=== PATIENT | female | born 1990 | race Caucasian/White ===

== ENCOUNTER 2017-01-21 10:57 | Inpatient (IN) | payer OTHER ==
[~2017-01-21] VITALS: Ht 160 cm; Wt 72.6 kg
--- NOTE | 2017-01-21 11:05 | NUR ---
PT STATES SHE WOKE UP A 2 WEEKS AGO WITH A PAINFUL LOWER BACK. SHE WAS SENT TO [facility] BY WALK IN FOR AN MRI YESTERDAY. PT STATES SHE NEVER GOT THE MRI. PT DENIES ANY TRAUMA THAT WOULD ACCOUNT FOR HER PAIN. STATES THE PAIN NOW GOES INTO HER UPPER BACK
--- NOTE | 2017-01-21 11:57 | ED GENERAL ADULT ---
History of Present Illness General Chief Complaint: General Adult Stated Complaint: BACK PAIN Source: patient Exam Limitations: no limitations Vital Signs & Intake/Output Vital Signs & Intake/Output Vital Signs Date Time Temp Pulse Resp B/P B/P Pulse O2 O2 Flow FiO2 Mean Ox Delivery Rate 01/210 96.3 74 20 128/75 98 Room Air 01/21 1859 96.5 62 20 104/68 99 Room Air 01/21 1341 97.2 60 19 118/72 100 Room Air 01/21 1201 96 01/21 1104 97.7 58 20 129/80 98 Room Air Allergies Coded Allergies: Penicillins (ANAPHALAXIS 01/21/17) Reconcile Medications Clindamycin HCl 150 MG CAPSULE 1 CAP PO 4 TIMES/DAY ANTIBIOTIC, INFECTION ( Reported) Fluoxetine HCl 40 MG CAPSULE 1 CAP PO QAM MENTAL HEALTH (Reported) Gabapentin 400 MG CAPSULE 1 CAP PO 4 TIMES/DAY UNKNOWN (Reported) Hydroxyzine Pamoate 50 MG CAPSULE 2 CAP PO TID UNKNOWN (Reported) Methadone HCl 10 MG/ML ORAL.CONC 40 MG PO DAILY MAINTENCE (Reported) Norethindrone AC-Eth Estradiol (Loestrin 21 1-20 Tablet) 1 MG-20 MCG TABLET 1 TAB PO DAILY BC (Reported) Triage Note: PT STATES SHE WOKE UP A 2 WEEKS AGO WITH A PAINFUL LOWER BACK. SHE WAS SENT TO [facility] BY WALK IN FOR AN MRI YESTERDAY. PT STATES SHE NEVER GOT THE MRI. PT DENIES ANY TRAUMA THAT WOULD ACCOUNT FOR HER PAIN. STATES THE PAIN NOW GOES INTO HER UPPER BACK Triage Nurses Notes Reviewed? yes Onset: Abrupt Duration: week(s): Timing: recent history : No Patient currently breastfeeds: No HPI: 01/21/17 12:51 PM This is a 26-year-old female presents to the emergency department complaining of severe upper and lower back pain. The patient states she was in usual state of health until approximately the past 2 weeks when she developed upper back pain. She says the pain radiates down into her spine. She is having intermittent weakness in the lower extremities. She is also having episodes of blurry vision. The onset of the symptoms were abrupt, the duration has been 2 weeks, the severity is significant; as her symptoms required her to come to the emergency department for care. On physical exam she does not have any objective weakness. She does have lower extremity hyperreflexia. She has a past medical history of depression she takes Prozac, Vistaril, and gabapentin. She denies any possibility of . Past History Travel History Traveled to [place] past 21 day No Medical History Any Pertinent Medical History? see below for history Psychiatric: anxiety, depression Surgical History Surgical History: non-contributory Psychosocial History What is your primary language Macedonian Tobacco Use: Current Daily Use Daily Tobacco Use Amount/Type: => 5 Cigarettes daily ETOH Use: occasional use Illicit Drug Use: denies illicit drug use Family History Hx Contributory? No Review of Systems Review of Systems Constitutional: Denies: fever. EENTM: Reports: visual changes. Respiratory: Denies: short of breath. Cardiovascular: Denies: chest pain. GI: Denies: abdominal pain. Genitourinary: Reports: no symptoms. Musculoskeletal: Reports: back pain, muscle pain. Skin: Denies: rash. Neurological/Psychological: Reports: weakness. Hematologic/Endocrine: Denies: bruising, bleeding. Physical Exam Physical Exam General Appearance: alert, awake, anxious, moderate distress Head: atraumatic, normal appearance Eyes: Bilateral: normal appearance, PERRL, EOMI. Ears, Nose, Throat: normal pharynx, normal ENT inspection Neck: normal inspection, supple, full range of motion Respiratory: normal breath sounds, chest non-tender Cardiovascular: regular rate/rhythm Peripheral Pulses: 4+ radial (R), 4+ radial (L) Gastrointestinal: soft, non-tender Back: decreased range of motion, muscle spasm Extremities: no edema Neurologic/Psych: no motor/sensory deficits, awake, alert, oriented x 3, no objective motor weakness, she does have hyperreflexia Reflexes: 4+: knee (R), knee (L). Skin: intact, normal color, warm/dry Core Measures ACS in differential dx? No CVA/TIA Diagnosis: No Severe Sepsis Present: No Septic Shock Present: No Progress Differential Diagnoses I considered the following diagnoses in my evaluation of the patient: [Guillain- Cota syndrome, epidural abscess, transverse myelitis, rhabdomyolysis, multiple sclerosis, adverse drug reaction,] Plan of Care: Orders Procedure Date/time Status Regular Diet 01/22 B Active CREATINE PHOSPHOKINASE 01/22 600 Active CBC WITHOUT DIFFERENTIAL 01/22 600 Active BASIC ELECTROLYTES PLUS BUN&CR 01/22 600 Active Lab Add-on Test 01/21 2045 Active BLOOD CULTURE 01/21 2045 Active TRC EVALUATION (GEN) 01/22 2044 Active Pathway - chart 01/22 2044 Active House Staff 01/22 2044 Active Lab Add-on Test 01/22 2044 Active Patient Data 01/[address] in observation 01/21 1839 Active Vital Signs 01/21 183 Active Code Status 01/21 1839 Active Add-on Test (ER Only) 01/21 1639 Active Add-on Test (ER Only) 01/21 1549 Active THYROID STIMULATING HORMONE 01/21 1324 Active LYME TITRE 01/21 1324 Active HIV (Reflex to HIVCQ) 01/21 1324 Active HEPATITIS PANEL 01/21 1324 Active FREE T4 01/21 1324 Active WESTERGREN SED RATE 01/21 1324 Active C-REACTIVE PROTEIN 01/21 1324 Active CREATINE PHOSPHOKINASE 01/21 1324 Active COMPREHENSIVE METABOLIC PANEL 01/21 1313 Active CBC WITHOUT DIFFERENTIAL 01/21 1313 Active Add-on Test (ER Only) 01/21 1254 Active Intake & Output 01/21 1201 Active URINE 01/21 1157 Complete URINE DRUG SCREEN FOR ER ONLY 01/21 1157 Complete URINALYSIS 01/21 1157 Complete VTE Mechanical Prophylaxis 01/21 UNK Active Vital Signs 01/21 UNK Active EKG 01/21 UNK Active Current Medications Sig/[place] Start time Last Medication Dose Stop Time Status Admin Fluoxetine HCl 40 MG DAILY 01/22 1000 AC (Prozac) Clindamycin 150 MG 4 TIMES/DAY 01/21 2200 AC (Cleocin 150MG Cap) Gabapentin 400 MG 4 TIMES/DAY 01/21 2200 AC (Neurontin) Heparin Sodium 5,000 UNIT Q8 01/21 2200 AC (Porcine) Hydroxyzine HCl 100 MG TID 01/21 2200 AC (Atarax) Ibuprofen 600 MG Q6P PRN 01/21 2045 AC 01/21 (Motrin) 2113 Nicotine 21 MG Q24 01/21 2045 AC 01/21 (Nicoderm) 2113 Sodium Chloride 1,000 ML Q6H 01/21 2015 AC (Normal Saline 0.9%) Diazepam 0 .STK-MED ONE 01/21 1955 CAN (Valium) Laboratory Tests 01/21/17 1324: Lyme Disease Antibody Pending 01/21/17 1324: Anion Gap 10, Estimated GFR > 60, BUN/Creatinine Ratio 15.0, Glucose 150 H, Calcium 8.7, Total Bilirubin 0.6, AST 116 H, ALT 133 H, Alkaline Phosphatase 56, Creatine Kinase 2515 H, C-Reactive Prot, Quant < 0.5, Total Protein 6.7, Albumin 3.7, Globulin 3.0, Albumin/Globulin Ratio 1.2, TSH 1.050, Free T4 1.11, CBC w Diff NO MAN DIFF REQ, RBC 4.11 L, MCV 89.5, MCH 30.7, RDW 12.6, MPV 6.5 L, Gran % 72.4, Lymphocytes % 20.8, Monocytes % 6.3, Eosinophils % 0.2, Basophils % 0.3, Absolute Granulocytes 10.6 H, Absolute Lymphocytes 3.0, Absolute Monocytes 0.9 H, Absolute Eosinophils 0, Absolute Basophils 0, PUBS MCHC 34.3, ESR Westergren Pending, Hepatitis A IgM Ab Pending, Hep Bs Antigen Pending, Hep B Core IgM Ab Conf Pending, Hepatitis C Antibody Pending, HIV 1&2 Ab Western Blot Pending 01/21/17 1157: Urine Opiates Screen < 100.00, Methadone Screen > 735 H, Barbiturate Screen < 60, Ur Phencyclidine Scrn 10.40, Amphetamines Screen < 100, U Benzodiazepines Scrn 406 H, Urine Cocaine Screen < 50, Urine Cannabis Screen > 80.00 H, Urine Color YEL, Urine Clarity CLEAR, Urine pH 6.5, Ur Specific [place] 1.015, Urine Protein NEG, Urine Ketones NEG, Urine Nitrite NEG, Urine Bilirubin NEG, Urine Urobilinogen 0.2, Ur Leukocyte Esterase NEG, Ur Microscopic SEDIMENT EXAMINED, Urine RBC RARE, Ur Epithelial Cells FEW, Urine Hemoglobin TRACE-INTACT, Urine Glucose NEG, Urine Test NEGATIVE Microbiology 01/22 2108 BLOOD: Blood Culture - RECD 01/21 2106 BLOOD: Blood Culture - RECD Initial ED EKG: none Departure Departure Disposition: STILL A PATIENT Condition: Stable Clinical Impression Primary Impression: Rhabdomyolysis Referrals: UNKNOWN (PCP/Family) Departure Forms: Customer Survey General Discharge Information Comments 01/21/17 MRI showed muscle edema. No epidural abscess or fluid collection. The patient' s CK was elevated substantially. She agreed to stay for IV fluids and further evaluation. MRI result listed below IMPRESSION: No epidural fluid collection. Mild spondylitic changes in the midthoracic spine. Small disc protrusion at T6-T7 abutting the ventral cord. No cord signal abnormality or syrinx. Minimal annular bulges in the cervical spine which is otherwise normal. No lumbar disc pathology. No imaging findings of discitis/osteomyelitis. Abnormal edema paraspinal muscles posteriorly throughout much of the cervical spine and lumbar spine with patchy areas of edema also present in the posterior paraspinal musculature in the upper and lower thoracic spine of indeterminate etiology. Imaging findings can be seen in the setting of rhabdomyolysis and clinical correlation is suggested. Imaging findings discussed with Dr. Fields at 4:40 PM on 01/21/2017. DICTATED BY: MARAL OVIEDO MD DATE/TIME DICTATED:01/21/171626 CARGO MATE:DARVIN DATE/TIME TRANSCRIBED:01/21/171626 CONFIDENTIAL, DO NOT COPY WITHOUT APPROPRIATE AUTHORIZATION. <Electronically signed in Other Vendor System> SIGNED BY: MARAL OVIEDO MD [id number] Observation Note Spoke With: BREE BARRIOS MD Physician Advisor Notified: KRISTIE DUPONT,PRERNA Zarate Place Patient In: Non-ED OBS Care Area Rationale for Observation: My rational for observation is as follows [patient needs IVF, IV PAIN MEDICATION , REPEAT CPK, FOLLOW UP CREATININE, neuro checks every 6 hours]. Critical Care Note Critical Care Note Critical Care Time: non-applicable
--- NOTE | 2017-01-21 12:00 | NUR ---
PT SEDATED MOTHER ANSWERING QUESTIONS FOR HER DR. HAWTHORNE AT BEDSIDE FOR EVAL PT FALLING ASLEEP WHILE TALKING
--- NOTE | 2017-01-21 12:25 | NUR ---
PT SLEEPING ON STRETCHER
--- NOTE | 2017-01-21 13:04 | NUR ---
DR. HAWTHORNE AT BEDSIDE TO DISCUSS POC
--- NOTE | 2017-01-21 13:28 | NUR ---
LABS DRAWN AND SENT BY THIS [facility]. BLUE,SST,LAV.
[2017-01-21 13:34] LABS: ABSOLUTE BASOPHIL COUNT 0 /CUMM (0.0-0.2); ABSOLUTE EOSINOPHIL COUNT 0 /CUMM (0.0-0.7); ABSOLUTE GRANULOCYTE CT 10.6 /CUMM (1.4-6.5); ABSOLUTE MONOCYTE COUNT 0.9 /CUMM (0.10-0.60); BASOPHIL % 0.3 % (0.0-2.0); EOSINOPHIL % 0.2 % (0-5); GRANULOCYTE % 72.4 % (42.2-75.2); HEMATOCRIT 36.8 % (37-47); MEAN CORPUSCULAR HGB 30.7 PG (27.0-31.0); MEAN CORPUSCULAR HGB CONC 34.3 G/DL (33.0-37.0); MEAN CORPUSCULAR VOLUME 89.5 FL (81.0-99.0); MEAN PLATELET VOLUME 6.5 FL (7.4-10.4); PLATELET COUNT 345 /CUMM (130-400); RBC DISTRIBUTION WIDTH 12.6 % (11.5-14.5); RED BLOOD CELL CT 4.11 /CUMM (4.20-5.40); WHITE BLOOD CELL COUNT 14.6 /CUMM (4.8-10.8)
--- NOTE | 2017-01-21 13:42 | NUR ---
PT MEDICATED DIRECTED WAITING FOR MRI
--- NOTE | 2017-01-21 14:49 | NUR ---
PT CONT. TO BE SEDATED ON AND OFF TO SLEEP WAITING FOR MRI
[2017-01-21] MEDS ORDERED: METHADONE10 MG/1 M2 PO (14:50)
[2017-01-21] MEDS ORDERED: GABAPENTIN400 M2 PO (14:51)
[2017-01-21] MEDS ORDERED: CLINDAMYCIN HC150 M1 PO (14:51)
[2017-01-21] MEDS ORDERED: FLUOXETINE HCL40 M1 PO (14:52)
[2017-01-21] MEDS ORDERED: HYDROXYZINE PAM50 M1 PO (14:52)
[2017-01-21] MEDS ORDERED: LOESTRIN 21 1-1 EACH PO (14:52)
--- NOTE | 2017-01-21 16:49 | MRI REPORT ---
EXAMINATION: MR CERVICAL SPINE WITHOUT CONTRAST MR THORACIC SPINE WITHOUT CONTRAST MR LUMBAR SPINE WITHOUT CONTRAST CLINICAL INFORMATION: Weakness. Rule out epidural abscess. COMPARISON: None TECHNIQUE: Multiplanar, multisequence imaging was obtained. FINDINGS: Cervical spine: The marrow signal is homogeneous. No endplate erosive changes are evident. There is no marrow edema. The discs are fairly well-hydrated. There are mild posterior annular bulges at C3-C4, C5-C6, and C6-C7. No disc protrusions are seen. There is no central canal stenosis or foraminal narrowing. No epidural soft tissue abnormality is visible. Cord signal is normal. There is no syrinx. The imaged portions of the brain parenchyma demonstrate no acute abnormality. There is edema throughout the posterior paraspinal muscles from the C2 level extending into the upper thoracic levels. No soft tissue fluid collection is seen. The vertebral artery flow voids are maintained. Thoracic spine: The marrow signal is homogeneous. The discs are fairly well-hydrated. There is mild to moderate disc space narrowing with endplate Schmorl's node formation at T7-T8 level and a very mild annular bulge. At the T3-T4 level, there is a minimal disc bulge posteriorly. At the T6-T7 level, there is a very small central disc protrusion which abuts the ventral cord. There is no central canal stenosis or foraminal narrowing. No epidural fluid collection is seen. No syrinx is identified. Edema is visible in the posterior paraspinal soft tissues extending to the T3 level. Lumbar spine: The discs are well-hydrated. There are no compression fractures or subluxations. Mild fatty marrow endplate change is noted inferiorly at the L2 level. The central canal and neural foramina are widely patent. The distal cord, conus tip, and cauda equina nerve roots are normal. No epidural fluid collection is seen. There are no disc protrusions. There are edematous change is present in the posterior paraspinal muscles bilaterally spanning from the lower thoracic to the lumbar levels and to the sacrum inferiorly. No discrete fluid collection is seen. IMPRESSION: No epidural fluid collection. Mild spondylitic changes in the midthoracic spine. Small disc protrusion at T6-T7 abutting the ventral cord. No cord signal abnormality or syrinx. Minimal annular bulges in the cervical spine which is otherwise normal. No lumbar disc pathology. No imaging findings of discitis/osteomyelitis. Abnormal edema paraspinal muscles posteriorly throughout much of the cervical spine and lumbar spine with patchy areas of edema also present in the posterior paraspinal musculature in the upper and lower thoracic spine of indeterminate etiology. Imaging findings can be seen in the setting of rhabdomyolysis and clinical correlation is suggested. Imaging findings discussed with Dr. Fields at 4:40 PM on 01/21/2017.
--- NOTE | 2017-01-21 17:01 | NUR ---
PT BACK FROM MRI VIA WHEELCHAIR
--- NOTE | 2017-01-21 19:24 | NUR ---
20G IV ESTABLISHED IN RAC.
--- NOTE | 2017-01-21 20:01 | NUR ---
HOUSESTAFF AT BEDSIDE FOR EVAL.
--- NOTE | 2017-01-21 20:17 | NUR ---
PT GOING TO ROOM 220-1.
--- NOTE | 2017-01-21 20:20 | History & Physical ---
MARISOL DUPONT,MARBIN 01/21/17 2019: General Information and HPI History of Present Illness: Ms. Su is a 26-year-old lady with a PMH significant for opiate dependence on methadone, depression and anxiety who presents with back pain for 10 days. Patient woke up with a sharp upper back pain and soreness about a week and half ago. Denies any recent/previous trauma, exercise, heavy lifting, or tick bites. Since then the pain has been progressively worsening and migrated down to the lower back and right posterior thigh. Pain is worsened by movement and not improved by any meds. Patient c/o difficulty ambulating and unsteady gait due to the pain. Patient went to urgent clinic 2 days ago and was scheduled for MRI at [facility] to where she presented yesterday but got discharged without any imaging studies as the pain was attributed to back spasm. ROS remarkable for nasal congestion and blurry vision for 2 days. Mild chills but no fevers. She endores neck pain with extension but there's no stiffness. Denies chest pain, palpitations, dypsnea, abdominal pain, n/v/c/d, dizziness, lightheadedness. Only new medications that were recently started include clindamycin for tooth infection since 5 days ago, gabapentin about a month ago, and methadone about a week ago. On she lives at her uncle's home. 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 Current smoker, up to 1 PPD. Denies any EtOH or illicit drug use. FH unremarkable. In ED patient was found to have leukocytosis at 14 and elevated CPK at 2515. A series of MRI studies were done and concerning for abnormal edema paraspinal muscles. However it did show . Patient received 1 liter bols of NS and 2 doses of Valium 5mg IV with an improvement in the back pain. PCP - none Full code. Allergies/Medications Allergies: Coded Allergies: Penicillins (ANAPHALAXIS 01/21/17) Home Med list Clindamycin HCl 150 MG CAPSULE 1 CAP PO 4 TIMES/DAY ANTIBIOTIC, INFECTION ( Reported) Fluoxetine HCl 40 MG CAPSULE 1 CAP PO QAM MENTAL HEALTH (Reported) Gabapentin 400 MG CAPSULE 1 CAP PO 4 TIMES/DAY UNKNOWN (Reported) Hydroxyzine Pamoate 50 MG CAPSULE 2 CAP PO TID UNKNOWN (Reported) Methadone HCl 10 MG/ML ORAL.CONC 40 MG PO DAILY MAINTENCE (Reported) Norethindrone AC-Eth Estradiol (Loestrin 21 1-20 Tablet) 1 MG-20 MCG TABLET 1 TAB PO DAILY BC (Reported) Past History Travel History Traveled to [place] past 21 day No Medical History Psychiatric: anxiety, depression Surgical History Surgical History: appendectomy Past Family/Social History Family History Relations & Conditions if any Family history was reviewed; no changes noted. Psychosocial History Where do you live? Home Who Do You Live With? Uncle Smoking Status: Current Everyday Smoker ETOH Use: denies use Illicit Drug Use: denies illicit drug use Review of Systems Review of Systems Constitutional: Reports: see HPI. Exam & Diagnostic Data Last 24 Hrs of Vital Signs/I&O Vital Signs Date Time Temp Pulse Resp B/P B/P Pulse O2 O2 Flow FiO2 Mean Ox Delivery Rate 01/21 2200 98.1 66 14 130/92 95 Room Air 01/21 2120 96.3 74 20 128/75 98 Room Air 01/21 1859 96.5 62 20 104/68 99 Room Air 01/21 1341 97.2 60 19 118/72 100 Room Air 01/21 1201 96 01/21 1104 97.7 58 20 129/80 98 Room Air Intake & Output 01/21 1600 01/21 0800 01/21 0000 Intake Total 0 Output Total Balance 0 Intake, Oral 0 Patient 61.235 kg Weight Physical Exam General Appearance Alert, Oriented X3, Cooperative, No Acute Distress Skin Diffuse pimples in the face Skin Temp/Moisture Exam: Cool/Dry HEENT Atraumatic, PERRLA, EOMI, Mucous Membr. moist/pink Neck Supple, No JVD, No LAD Cardiovascular Regular Rate, Normal S1, Normal S2, No Murmurs, Gallops, Rubs Lungs Clear to Auscultation, Normal Air Movement Abdomen Normal Bowel Sounds, Soft, No Tenderness Neurological Normal Gait, Normal Speech, Strength at 5/5 X4 Ext, Normal Tone, Sensation Intact, Cranial Nerves 3-12 NL, Hyperreflexia in BLE, TTP in paraspinal muscles of the whole spine (R>L) Extremities No Clubbing, No Cyanosis, No Edema, Normal Pulses, No Tenderness/ Swelling, Straight leg test negative Vascular Normal Pulses, Pulses Symmetrical Last 24 Hrs of Labs/Kg: Laboratory Tests 01/21/17 1324: Lyme Disease Antibody Pending 01/21/17 1324: Anion Gap 10, Estimated GFR > 60, BUN/Creatinine Ratio 15.0, Glucose 150 H, Calcium 8.7, Total Bilirubin 0.6, AST 116 H, ALT 133 H, Alkaline Phosphatase 56, Creatine Kinase 2515 H, Troponin I < 0.01, C-Reactive Prot, Quant < 0.5, Total Protein 6.7, Albumin 3.7, Globulin 3.0, Albumin/Globulin Ratio 1.2, TSH 1.050, Free T4 1.11, CBC w Diff NO MAN DIFF REQ, RBC 4.11 L, MCV 89.5, MCH 30.7 , RDW 12.6, MPV 6.5 L, Gran % 72.4, Lymphocytes % 20.8, Monocytes % 6.3, Eosinophils % 0.2, Basophils % 0.3, Absolute Granulocytes 10.6 H, Absolute Lymphocytes 3.0, Absolute Monocytes 0.9 H, Absolute Eosinophils 0, Absolute Basophils 0, PUBS MCHC 34.3, ESR Westergren 14, Hepatitis A IgM Ab Pending, Hep Bs Antigen Pending, Hep B Core IgM Ab Conf Pending, Hepatitis C Antibody Pending , HIV 1&2 Ab Western Blot NONREACTIVE 01/21/17 1157: Urine Opiates Screen < 100.00, Methadone Screen > 735 H, Barbiturate Screen < 60, Ur Phencyclidine Scrn 10.40, Amphetamines Screen < 100, U Benzodiazepines Scrn 406 H, Urine Cocaine Screen < 50, Urine Cannabis Screen > 80.00 H, Urine Color YEL, Urine Clarity CLEAR, Urine pH 6.5, Ur Specific [place] 1.015, Urine Protein NEG, Urine Ketones NEG, Urine Nitrite NEG, Urine Bilirubin NEG, Urine Urobilinogen 0.2, Ur Leukocyte Esterase NEG, Ur Microscopic SEDIMENT EXAMINED, Urine RBC RARE, Ur Epithelial Cells FEW, Urine Hemoglobin TRACE-INTACT, Urine Glucose NEG, Urine Test NEGATIVE Microbiology 01/22 2108 BLOOD: Blood Culture - RECD 01/21 2106 BLOOD: Blood Culture - RECD Assessment/Plan Assessment: Ms. Su is a 26-year-old lady with a PMH significant for opiate dependence on methadone, depression and anxiety who presents with back pain concerning for rhabdomyolisis. # Back pain most likely 2/2 rhabdomyolysis Her clinical presentation with muscle pain of sudden onset is most consistent with rhabdomyolysis in the setting of CPK > 20k. Etiology not defintely clear but supsected to be most likely medication induced (gabapentin, heroin, street drugs, etc.) * Admit to GM service * Vitals per protocol * Check HIV, hepatitis panel, and lyme titer * Follow ESR and repeat ESR * Resume home meds gabapentin with a plan to taper gradually * Consider neuro/rheum consult * Send pancultures * Recheck CBC in the morning, trend WBC # Opiate/tobacco dependence * Cont home dose of methanoe * Confirm the methadone dose tomorrow morning (reportedly takes 40mg daily) * Nicotine patch # Depression/anxiety * Resume home med Atarax 100mg TID PO * Resume home med Prozac 40mg PO daily # Recent tooth infection * Resume home med Clindamycin 150mg QID - Regular diet - Mild pain pathway, avoid narcotics - DVTppx with SQH - Full code. As Ranked By This Provider Problem List: 1. Rhabdomyolysis 2. Depression 3. Anxiety Core Measures/Miscellaneous Acute Coronary Syndrome ACS Diagnosis: No Cerebrovascular Accident CVA/TIA Diagnosis: No Congestive Heart Failure CHF Diagnosis: No Venous Thromboembolism VTE Risk Factors: Oral contraception, Smoking No [facility] V[facility] prophylaxis d/t: No contraindications No VTE Pharm Prophylaxis d/t: No contraindications VTE Diagnosis: No VTE Type: NONE VTE Confirmed by (Test): NONE Severe Sepsis Severe Sepsis Present: No Septic Shock Septic Shock Present: No Miscellaneous Documentation Attending Case Discussed With: BREE BARRIOS MD Primary Care Physician: UNKNOWN Patient sees these Specialists Psych Level of Patient Care: General Medicine ANIKA BRUSH MD 01/21/172038: Resident Review Statement Resident Statement: examined this patient, discussed with phd internship Other Findings: 26-year-old lady whose medical issues include anxiety and depression presents with a two-week history of lower upper paraspinal pain. Reports no injury or trauma or heavy lifting. States that about a week and a half ago she started to notice the symptoms of progressive upper and lower back pain that radiates to her right posterior thigh. No bladder or bowel incontinence, no vision changes, head aches, head strikes a loss of consciousness. States that she went to the walk-in clinic couple of days ago and they recommended that she go to the emergency room and get an MRI however she has been reluctant to do so over the course of last couple of weeks. Denies any fevers or chills. Denies any cough or dysuria, hematuria. MRI of the cervical, thoracic, lumbar spine showed no acute finding. There is some suggestion of abnormal edema in the paraspinal muscles throughout much of the cervical and lumbar spine. She states that when she was 18 years old she had extensive dental surgery done and was placed on Percocet since, this is why she is presently on methadone and gets it from a healthcare facility in [place]. Family history is negative for heart disease, cancers and diabetes. Patient herself smokes one pack per day, denies any illicit drug use or heavy alcohol use. Denies any tick bite. Pertinent labs- WBC 14,600, BEP is benign, AST 116, ALT 133, alkaline phosphatase 56, CK 2515. U tox positive for methadone, benzodiazepines, cannabis Physical exam- Vital signs are stable, cardiovascular, abdominal exam is benign Tenderness to palpation over paraspinal muscles bilaterally throughout the cervical, thoracic, lumbar spine. No tenderness on the spinal muscles. Hips have good range of motion, spine has good range of motion; mild bilateral hyperreflexia bilateral lower extremities, poor dentition Assessment- 1. Rhabdomyolysis; no definitive etiology. Although gabapentin can cause rhabdomyolysis, other etiologies can include polymyositis, PMR etc. 2. Back pain, no acute trauma or fractures, MRI suggestive of paraspinal muscle inflammation 3. Current pack per day smoker 4. Anxiety and depression 5. Poor dentition 6. Current smoker, 1 pack per day Plan- - General med admission - Vitals per protocol - Hepatitis, HIV, Lyme titer - Check ESR, CRP - Continue home meds, consider tapering gabapentin - Check EKG - Normal saline 150 mL/h - Consider Rheum consult in the morning - Nicotine 21 g patch daily, cessation consult - Regular diet - Pain pathway, avoid opiates - Get blood cultures 2 - Subcutaneous heparin for DVT prophylaxis - Full code Please confirm her methadone dose in the morning BREE BARRIOS 01/22/17 0134: Attending MD Review Statement Attending Statement Attending MD Statement: examined this patient, discuss w/resident/PA/COMMISSIONING SPECIALIST, agreed w/resident/PA/COMMISSIONING SPECIALIST, discussed with family, reviewed EMR data (avail), reviewed images, amended to note Attending Assessment/Plan: CC: back pain PMH: opiate abuse s/p rehab, now on on methadone Patient came to ER complaining of severe upper and lower back pain, started 2 weeks back. The pain is constant, started suddenly, radiates down into her spine , associated with intermittent weakness in the lower extremities. She is also having episodes of blurry vision, headache according to her mother. Patient denies any trauma, loss of consciousness, falls. Patient was seen in urgent care , was suggested urgent ER visit and probable requirement of MRI. Patient went to [facility] where she was treated symptomatically and given Valium and discharged 2 days back. Vitals: T max 97.7, heart rate in 50s, pulse 20s, blood pressure 129/80, saturating well on room air On exam: Drowsy but arousable, no steady gaze , no nystagmus, pupils dilated equal reactive, O 3, cooperative, no acute distress, neck supple, JVD normal, no lymphadenopathy, mucosa moist, no focal neurological deficit except +3 reflexes all extremities, no dependent edema, multiple skin lesions, on lateral aspect of face and arms. Local tenderness on back. CVS: S1-S2, RRR, no murmur. RS: Clear to auscultate bilaterally. Abdomen: Soft, NT, ND, bowel sounds present. Labs: WBC 14.6, neutrophils 72%, glucose 150, creatinine 0.6, BUN 9, AST 116, ALT 133, CK 2515, UDS positive for methadone, benzodiazepines, cannabis MRI thoracic, lumbar, cervical spine: 1. No epidural fluid collection. Mild spondylitic changes in the midthoracic spine. Small disc protrusion at T6-T7 abutting the ventral cord. No cord signal abnormality or syrinx. Minimal annular bulges in the cervical spine which is otherwise normal. No lumbar disc pathology. No imaging findings of discitis/ osteomyelitis. 2. Abnormal edema paraspinal muscles posteriorly throughout much of the cervical spine and lumbar spine with patchy areas of edema also present in the posterior paraspinal musculature in the upper and lower thoracic spine of indeterminate etiology. Imaging findings can be seen in the setting of rhabdomyolysis and clinical correlation is suggested. A and P Patient appears lethargic, unable to maintain gaze, pupils dilated reactive. Multiple skin lesions, noninfected. front tender, MRI suspicious for rhabdomyolysis, so CPK was obtained in ER which was elevated, creatinine is normal. Patient denies any current illicit drug use, trauma, loss of consciousness. Unclear cause of Hemolysis. Probably medication related or patient may have passed out for a long time secondary to any drug use which is not optimal on UDS causing rhabdo. # Rhabdomyolysis unclear etiology # Transaminitis # History of opiate dependence currently on methadone # Leukocytosis: Probably reactive - Place in observation on Gen. medicine - Continue normal saline at 150-200 mL per hour - Strict I's and O's - Check BMP, LFT, CPK in a.m. - Neurochecks every 6 hours - If patient's confusion, lethargy does not improve over time, may require further neuro investigations in a.m. - Check viral hepatitis panel - Check Tylenol level - Blood cultures time 2 -Continue home doses of methadone after confirmation, home doses of fluoxetine, decreased dose of gabapentin and continue clindamycin for dental infection
--- NOTE | 2017-01-21 20:49 | NUR ---
REPORT GIVEN TO ACE JONES ON GEN MED. BED IS READY.
--- NOTE | 2017-01-21 21:15 | NUR ---
PT MEDICATED WITH MOTRIN 600MG PO AND NICOTINE PATCH 21MG TO L ARM PER EMAR.
--- NOTE | 2017-01-21 21:45 | NUR ---
ARRIVED TO FLOOR VIA WHEELCHAIR. VERY LETHARGIC BUT AROUSABLE. ORIENTED X 3. ON RA. VSS. C/O SEVERE LOWER BACK PAIN 07/09. RESIDENT DR. TRUDI CORNEJO AND STATES HE WILL COME UP TO SEE PT. ASSISTED FROM CHAIR TO BED, STANDS WITHOUT DIFFICULTY. MOTHER JOHANNA AT BEDSIDE. IVF HUNG. ORIENTED TO CALL SYSTEM. WILL MONITOR.
[2017-01-21 22:00] VITALS: BP 130/92
[2017-01-22 06:00] VITALS: BP 118/70
[2017-01-22 08:09] LABS: ABSOLUTE BASOPHIL COUNT 0 /CUMM (0.0-0.2); ABSOLUTE EOSINOPHIL COUNT 0.3 /CUMM (0.0-0.7); ABSOLUTE LYMPH COUNT 4.9 /CUMM (1.2-3.4); BASOPHIL % 0.3 % (0.0-2.0); EOSINOPHIL % 2.2 % (0-5); GRANULOCYTE % 52.9 % (42.2-75.2); HEMATOCRIT 34.3 % (37-47); MEAN CORPUSCULAR HGB 30.6 PG (27.0-31.0); MEAN CORPUSCULAR HGB CONC 33.7 G/DL (33.0-37.0); MEAN CORPUSCULAR VOLUME 90.9 FL (81.0-99.0); MEAN PLATELET VOLUME 6.6 FL (7.4-10.4); PLATELET COUNT 299 /CUMM (130-400); RBC DISTRIBUTION WIDTH 12.9 % (11.5-14.5); RED BLOOD CELL CT 3.77 /CUMM (4.20-5.40)
--- NOTE | 2017-01-22 08:50 | NUR ---
PT LEFT FLOOR VIA STRETCHER TO CT SCAN.
[2017-01-22 09:13] LABS: WHITE BLOOD CELL COUNT 13.2 /CUMM (4.8-10.8)
--- NOTE | 2017-01-22 09:30 | CT SCAN REPORT ---
EXAMINATION: CT HEAD WITHOUT AND WITH CONTRAST CLINICAL INFORMATION: Headache, neck pain and mild photophobia. Evaluate for intracranial mass or intracranial hypertension. COMPARISON: None TECHNIQUE: Contiguous axial imaging was performed from the skull base to vertex before and after the administration of 95 mL of Optiray 320 intravenous contrast. DLP: 1201 mGy-cm FINDINGS: The brain parenchyma has normal attenuation with well-preserved rasheed-white matter differentiation. No evidence of cerebral edema, infarction, hemorrhage or extra-axial fluid collection. No evidence of intra-axial or extra-axial mass, focal mass effect or midline shift. The ventricles, sulci and basilar cisterns are unremarkable; no hydrocephalus. No evidence of dural venous sinus thrombosis. There are no saccular aneurysms identified along the [place] of [place]. The calvarium is intact and the visualized paranasal sinuses, nasal cavity, nasopharynx, mastoid air cells and middle ear cavities are well aerated. The orbits, globes and temporomandibular joints are unremarkable. IMPRESSION: No acute intracranial pathology.
--- NOTE | 2017-01-22 10:35 | NUR ---
patient arrived to unit 01/21/2017 at 2200, patient is an observation not an admission at this time, will follow accordingly.
--- NOTE | 2017-01-22 13:34 | PN- Housestaff ---
NENACLAUSHAY 01/22/17 1334: Subjective Follow-up For: rhabdomyolysis history of polysubstance abuse Subjective: Seen and examined patient, mother at bedside. Complains of neck pain. Denies shortness of breath, chest pain, palpitations. Review of Systems Constitutional: Denies: chills, diaphoresis, fever, malaise, weakness, unexplained weight loss. Cardiovascular: Denies: chest pain, edema, orthopena, palpitations, peripheral edema, syncope. Respiratory: Denies: cough, hemoptysis, orthopnea, short of breath, sputum production, stridor, wheezing. Objective Last 24 Hrs of Vital Signs/I&O Vital Signs Date Time Temp Pulse Resp B/P B/P Pulse O2 O2 Flow FiO2 Mean Ox Delivery Rate 01/23 1812 98.8 66 20 116/60 97 Room Air 01/22 1422 99.5 68 20 118/78 94 Room Air 01/22 0928 Room Air 01/22 0600 98.4 58 16 118/70 96 Room Air 01/22 0000 95 Room Air 01/21 2200 98.1 66 14 130/92 95 Room Air 01/21 2120 96.3 74 20 128/75 98 Room Air Intake & Output 01/22 1600 01/22 0800 01/22 0000 Intake Total 960 1540 390 Output Total 700 900 0 Balance 260 640 390 Intake, IV 600 1200 150 Intake, Oral 360 340 240 Number 0 0 Bowel Movements Output, Urine 700 900 0 Patient 160 lb Weight Weight Reported by Patient Measurement Method Physical Exam General Appearance: No Acute Distress, drowsy Skin: excoriations on face Cardiovascular: Regular Rate, Normal S1, Normal S2 Lungs: Clear to Auscultation, Normal Air Movement Abdomen: Normal Bowel Sounds, Soft, No Tenderness Current Medications: Current Medications Sig/[place] Start time Last Medication Dose Route Stop Time Status Admin Acetaminophen 650 MG Q4-6 PRN PRN 01/22 1645 AC 01/22 PO 1646 Clindamycin 150 MG 4 TIMES/DAY 01/21 220 AC 01/22 PO 1920 Cyclobenzaprine HCl 10 MG BID 01/22 1113 DC 01/22 PO 1126 Diazepam 5 MG BID PRN 01/22 1200 AC 01/22 PO 1254 Diazepam 0 .STK-MED ONE 01/21 1955 CAN .ROUTE Diclofenac Sodium 1 ELLIOTT 4 TIMES/DAY PRN 01/22 1815 01/22 TOP 1920 Fluoxetine HCl 40 MG DAILY 01/22 1000 AC 01/22 PO 0931 Gabapentin 300 MG AT BEDTIME 01/22 2200 PO Gabapentin 300 MG TID 01/22 1600 DC 01/22 PO 1622 Gabapentin 400 MG 4 TIMES/DAY 01/21 2200 DC 01/22 PO 0931 Heparin Sodium 5,000 UNIT Q8 01/21 2200 01/22 (Porcine) SC 1435 Hydroxyzine HCl 100 MG TID 01/21 2200 01/22 PO 0931 Ibuprofen 0 .STK-MED ONE 01/21 2057 DC PO Ibuprofen 600 MG Q6P PRN 01/21 2045 DC 01/21 PO 2114 Methadone HCl 40 MG DAILY 01/22 1000 01/22 PO 0932 Nicotine 0 .STK-MED ONE 01/21 2057 DC TOP Nicotine 21 MG Q24 01/21 2045 01/22 TOP 0940 Patient Medication 1 ED .STK-MED ONE 01/22 1403 DC Teaching ED 01/22 1404 Sodium Chloride 1,000 ML Q13H 01/22 0830 01/22 IV 0854 Sodium Chloride 1,000 ML Q6H 01/21 2015 [place] 01/22 IV 0500 Sodium Chloride 1,000 ML BOLUS ONE 01/21 194 DC 01/21 IV 01/21 Tramadol HCl 50 MG ONCE ONE 01/22 0600 DC 01/22 PO 01/22 0601 0600 Tramadol HCl 50 MG ONCE ONE 01/22 0200 DC 01/22 PO 01/22 0201 0206 Tramadol HCl 50 MG ONCE ONE 01/21 2215 [place] 01/21 PO 01/21 Last 24 Hrs of Lab/Kg Results Last 24 Hrs of Labs/Mics: Laboratory Tests 01/22/17 0725: Anion Gap 8, Estimated GFR > 60, BUN/Creatinine Ratio 11.7, Total Bilirubin 0.6, Direct Bilirubin 0.2, AST 63 H, ALT 99 H, Alkaline Phosphatase 44, Creatine Kinase 957 H, Total Protein 5.7 L, Albumin 3.0 L, CBC w Diff NO MAN DIFF REQ, RBC 3.77 L, MCV 90.9, MCH 30.6, RDW 12.9, MPV 6.6 L, Gran % 52.9, Lymphocytes % 37.4, Monocytes % 7.2, Eosinophils % 2.2, Basophils % 0.3, Absolute Granulocytes 7.0 H, Absolute Lymphocytes 4.9 H, Absolute Monocytes 1.0 H, Absolute Eosinophils 0.3, Absolute Basophils 0, PUBS MCHC 33.7 01/21/17 2240: Troponin I < 0.01 Microbiology 01/22 2108 BLOOD: Blood Culture - RES 01/21 2106 BLOOD: Blood Culture - RES Assessment/Plan Assessment: 26-year-old lady with a PMH significant for opiate dependence on methadone, depression and anxiety current admission with back pain of 10 days duration. On admission was found to have leukocytosis at 14 and elevated CPK at 2515. A series of MRI studies were done and concerning for abnormal edema paraspinal muscles. Day 1 of admission: Continues to be lethargic, vitals stable, transaminase and cpk trending down. Contrast enhanced CT head was unremarkable. Problem list: Rhabdomyolysis ( ? drug induced) Transaminitis History of opiate dependence currently on methadone Plan: - Place in extended observation on Gen. medicine - will dc fluids -Her lethargy might be due to her high dose of gabapentin, will start tapering down today -Psyhiatry consulted, appreciate recommendations -will get social work on board -Continue home doses of methadone, fluoxetine, and - continue clindamycin for dental infection for aa total of 7days regular diet DVT ppx full code Problem List: 1. Rhabdomyolysis 2. Depression 3. Anxiety 4. Polysubstance (excluding opioids) dependence Pain Ratin Pain Location: neck Pain Goal: Pain 4 or less Pain Plan: current regimen Tomorrow's Labs & Rationales: none required GUERLINE AVENDANO MD 01/22/17 1336: Attending MD Review Statement Attending Statement Attending MD Statement: examined this patient, discuss w/resident/PA/CURATOR OF EDUCATION, agreed w/resident/PA/CURATOR OF EDUCATION, discussed with family, reviewed EMR data (avail), discussed with nursing, discussed with case mgmt, reviewed images Attending Assessment/Plan: I spoke to the patient and the patient's mother for a very long time at the bedside. I also reviewed all imaging including the entire MRI of the spine and the CT head with and without contrast. This is a 26-year-old female with a history of illicit drug abuse was most recently at [facility] where she was having rehabilitation for prescription opiate use and has been now to more than one hospital for what she describes is acute back pain. She has a lot of polypharmacy with multiple sedating medications in addition to methadone and her U tox positive for benzos. I explained to the patient and her mother that given the negative imaging, the very mild rhabdomyolysis as evidenced by a CPK of 2000 that already 700, that I think most of her symptomatology has to do with polypharmacy and overmedication. The patient is drowsy but arousable and when aroused she makes complete sense, is able to give you an entire history and I think her neurological exam is only limited secondary to sedation. At this point our plan is to start tapering off the medications. The mother seems to think that gabapentin is the biggest offender as it was the most recently added and is at the highest dose and we are going to start tapering that off. We will give her the Valium when necessary as it's clear that she is using benzos with a positive U tox. will wean off the iV fluids and encourage by mouth intake. I have her permission to call psychiatry to help us out with the polypharmacy and the plan will be to try and discharge her later today or within 24 hours. I Did explain to the patient and the mother that most of her issues need chronic care either in an outpatient dual diagnosis unit and with a primary provider.
[2017-01-22 14:22] VITALS: BP 118/78
--- NOTE | 2017-01-22 14:30 | NUR ---
PT APPEARED VERY DROWSY AFTER ADMINISTRATION OF 5 MG PO VALIUM, DISCUSSED FINDING WITH SARAH STAPLES AND MD KATZ. CONCERN ABOUT GABAPENTIN OVERDOSE, THIS RN MENTIONED POSSIBLE OUTSIDE DRUG USE, MD KATZ AND SARAH STAPLES DID NOT SEE THAT NECESSARY. PER SARAH STAPLES THIS RN HELD PO GABAPENTIN AND MONITOR PATIENT VITALS Q 4 HOURS. WILL CONTINUE TO MONITOR
--- NOTE | 2017-01-22 16:00 | NUR ---
PT C/O PAIN IN NECK AND BACK, BECAUSE OF PATIENTS DROWSINESS- ANYTHING TO WORSEN PATIENT'S ALERTNESS SHOULD BE HELD. PO TYLENOL ADMINISTERED FOR PAIN 8/10 IN NECK AND BACK. ALSO HELD PTS ATARAX PER MD AVENDANO. WILL CONTINUE TO MONITOR.
--- NOTE | 2017-01-22 17:00 | Cons- Psychiatry ---
Psychiatric Consult Date of Consult: 01/22/17 Reason for Consult: "substance abuse" History of Present Illness: Identifying Info: 26-year-old single female presents to [facility] emergency department on 01/21/2017 for back pain. Transferred to medical floor for observation subsequently diagnosed with rhabdomyolysis with unknown etiology. CC: "Sorry I'm tired" HPI: Patient has a history of polysubstance abuse, primarily opiates, dating back to age 18 when she received Percocets for dental work. She overused and eventually began using opiates obtained on the street. Throughout that period she has had issues with depression and anxiety. She has a history of substance treatment and one significant period of sobriety from 07/2015 to 07/2016. She recently left residential treatment at [facility] where she was treated by Dr. Nguyen who started her on gabapentin 400 mg 4 times a day. After leaving she engaged in methadone maintenance treatment starting approximately 1 week ago at the [facility] in [place]. At present she has approximately 25 days of sobriety. PMH: Please see the H&P for a complete listing Past Psych History: -Outpatient "Doreen" at [facility] in [place], ?date? -Inpatient Denies Family Psych History: Mom anxiety and depression Dad anxiety Substance History Opiate use d/o Current everyday smoker -Treatment 2015 Residential tx at [facility] followed by stay at [facility] 2017 Inaptient tx at [facility] Substance History: Mom & Dad polysubstance in recovery Social: Currently lives with uncle in [place]. Works at [employer] Abuse/Trauma: Unobtained Current Home Psychotropic Medications: Gabpentin 400mg QID Prozac 40mg Daily Hydroxyzine 100 mg BID Baclofen 20mg daily for opiate cravings Methadone 40mg daily Current Hospital Psychotropic Medications: Med Diazepam 5 MG PO BID PRN 01/22/17 1200 Fluoxetine HCl 40 MG PO DAILY 01/22/17 1000 Gabapentin 300 MG PO AT BEDTIME 01/22/17 2200 Hydroxyzine HCl 100 MG PO TID 01/21/17 2200 Methadone HCl 40 MG PO DAILY 01/22/17 1000 Nicotine 21 MG TOP Q24 01/21/172044 Allergies: Coded Allergies: Penicillins (ANAPHALAXIS 01/21/17) Current Medications: Current Medications Sig/Vernon Start time Last Medication Dose Route Stop Time Status Admin Acetaminophen 650 MG Q4-6 PRN PRN 01/22 1645 AC 01/22 PO 1646 Clindamycin 150 MG 4 TIMES/DAY 01/21 220 AC 01/22 PO 1435 Cyclobenzaprine HCl 10 MG BID 01/22 1113 DC 01/22 PO 1126 Diazepam 5 MG BID PRN 01/22 1200 AC 01/22 PO 1254 Diazepam 0 .STK-MED ONE 01/21 1955 CAN .ROUTE Diazepam 5 MG ONCE ONE 01/21 1945 DC IV 01/21 194 Fluoxetine HCl 40 MG DAILY 01/22 1000 AC 01/22 PO 0931 Gabapentin 300 MG AT BEDTIME 01/22 2200 AC PO Gabapentin 300 MG TID 01/22 1600 DC 01/22 PO 1622 Gabapentin 400 MG 4 TIMES/DAY 01/21 2200 DC 01/22 PO 0931 Heparin Sodium 5,000 UNIT Q8 01/21 2200 AC 01/22 (Porcine) SC 1435 Hydroxyzine HCl 100 MG TID 01/21 2200 01/22 PO 0931 Ibuprofen 0 .STK-MED ONE 01/21 2057 DC PO Ibuprofen 600 MG Q6P PRN 01/21 2045 DC 01/21 PO 2114 Methadone HCl 40 MG DAILY 01/22 1000 AC 01/22 PO 0932 Nicotine 0 .STK-MED ONE 01/21 2057 DC TOP Nicotine 21 MG Q24 01/21 2045 01/22 TOP 0940 Patient Medication 1 ED .STK-MED ONE 01/22 1403 DC Teaching ED 01/22 1404 Sodium Chloride 1,000 ML Q13H 01/22 0830 01/22 IV 0854 Sodium Chloride 1,000 ML Q6H 01/21 2015 NC 01/22 IV 0500 Sodium Chloride 1,000 ML BOLUS ONE 01/21 1945 DC 01/21 IV 01/21 Tramadol HCl 50 MG ONCE ONE 01/22 0600 DC 01/22 PO 01/22 0601 0600 Tramadol HCl 50 MG ONCE ONE 01/22 0200 DC 01/22 PO 01/22 201 020 Tramadol HCl 50 MG ONCE ONE 01/21 2215 DC 01/21 PO 01/21 Past History Past Medical History Neurological: NONE EENT: NONE Cardiovascular: NONE Respiratory: asthma Gastrointestinal: NONE Hepatic: NONE Renal: NONE Musculoskeletal: NONE Psychiatric: anxiety, depression Endocrine: NONE Blood Disorders: NONE Cancer(s): NONE ICT BUSINESS DEVELOPMENT MANAGER/Reproductive: NONE Past Surgical History Surgical History: appendectomy Psychosocial History Strengths/Capabilities: Supportive family, tx motivated Physical Limitations (Interventions): hx of opiate dependence and relapse Psychiatric Treatment History Psych Treatment Psychiatric Treatment Yes ((as above)) Diagnosis: Opiate use disorder Unspecified anxiety disorder Unspecified depressive disorder Risk Factors: high anxiety/distress, substance abuse Substance Use/Abuse History Drug Use/Abuse Substances Used/Abused Yes ((as above)) Substance Abuse Treatment Substance Abuse Treatment Past Substance Abuse [place] Yes ((as above)) Assessment/Plan Mental Status Mental Status Exam: Mental Status Exam Presentation/Appearance: Cooperative with evaluation and takes much effort for her to response appropriately to quetsions. Hospital garb. Appears sedated. Skin breaks to face,(picking vs acne?) Orientation: Oriented to self and month, unable to name date, facility or town. Sensorium: Somnolent Eye contact: Poor Affect: Blunted Mood: "I'm frustrated" Depression: Denies at present Anxiety: Denies at present Thought Content: - Denies SI/HI, AH/VH, PI. States and also believes they will not kill themselves. - Denies Hopeless/Helpless Thoughts Thought Process: Some mild confusion, slowed Speech: Somewhat dysarthic/slurred Judgment: Fair Insight: Fair Cognition: Memory: Short-term deficits Attention/Concentration: Imapired MMSE: Did not assess Brief ROS Gait: Unsteady Sleep: Increased Appetite: Adequate Energy: Low IADLs/ADLs: With assistence currently Per nursing and house staff report patient was much more alert and oriented this a.m. and now appears much more lethargic with some confusion. She has received 40 mg of methadone as well as 5 mg of diazepam today. Collateral obtained from patient's mother who reports she has been experiencing confusion and low energy since beginning to take gabapentin. Confirms patient's recounting of her substances history as above. Patient reports diplopia and blurred vision, sedation, and increased salivation. She requests dual dx IOP referral here or at another facility post discharge. Lab Results: Laboratory Tests 01/22/17 0725: Anion Gap 8, Estimated GFR > 60, BUN/Creatinine Ratio 11.7, Total Bilirubin 0.6, Direct Bilirubin 0.2, AST 63 H, ALT 99 H, Alkaline Phosphatase 44, Creatine Kinase 957 H, Total Protein 5.7 L, Albumin 3.0 L, CBC w Diff NO MAN DIFF REQ, RBC 3.77 L, MCV 90.9, MCH 30.6, RDW 12.9, MPV 6.6 L, Gran % 52.9, Lymphocytes % 37.4, Monocytes % 7.2, Eosinophils % 2.2, Basophils % 0.3, Absolute Granulocytes 7.0 H, Absolute Lymphocytes 4.9 H, Absolute Monocytes 1.0 H, Absolute Eosinophils 0.3, Absolute Basophils 0, PUBS MCHC 33.7 01/21/17 2240: Troponin I < 0.01 01/21/17 1324: Lyme Disease Antibody 0.17 01/21/17 1324: Anion Gap 10, Estimated GFR > 60, BUN/Creatinine Ratio 15.0, Glucose 150 H, Calcium 8.7, Total Bilirubin 0.6, AST 116 H, ALT 133 H, Alkaline Phosphatase 56, Creatine Kinase 2515 H, Troponin I < 0.01, C-Reactive Prot, Quant < 0.5, Total Protein 6.7, Albumin 3.7, Globulin 3.0, Albumin/Globulin Ratio 1.2, TSH 1.050, Free T4 1.11, CBC w Diff NO MAN DIFF REQ, RBC 4.11 L, MCV 89.5, MCH 30.7 , RDW 12.6, MPV 6.5 L, Gran % 72.4, Lymphocytes % 20.8, Monocytes % 6.3, Eosinophils % 0.2, Basophils % 0.3, Absolute Granulocytes 10.6 H, Absolute Lymphocytes 3.0, Absolute Monocytes 0.9 H, Absolute Eosinophils 0, Absolute Basophils 0, PUBS MCHC 34.3, ESR Westergren 14, Hepatitis A IgM Ab NONREACTIVE, Hep Bs Antigen Pending, Hep B Core IgM Ab Conf NONREACTIVE, Hepatitis C Antibody NONREACTIVE, HIV 1&2 Ab Western Blot NONREACTIVE, Acetaminophen < 10.0 L 01/21/17 1157: Urine Opiates Screen < 100.00, Methadone Screen > 735 H, Barbiturate Screen < 60, Ur Phencyclidine Scrn 10.40, Amphetamines Screen < 100, U Benzodiazepines Scrn 406 H, Urine Cocaine Screen < 50, Urine Cannabis Screen > 80.00 H, Urine Color YEL, Urine Clarity CLEAR, Urine pH 6.5, Ur Specific Hallock 1.015, Urine Protein NEG, Urine Ketones NEG, Urine Nitrite NEG, Urine Bilirubin NEG, Urine Urobilinogen 0.2, Ur Leukocyte Esterase NEG, Ur Microscopic SEDIMENT EXAMINED, Urine RBC RARE, Ur Epithelial Cells FEW, Urine Hemoglobin TRACE-INTACT, Urine Glucose NEG, Urine Test NEGATIVE Microbiology 01/22 2108 BLOOD: Blood Culture - RES 01/21 2106 BLOOD: Blood Culture - RES Diffential Diagnosis: Gabapentin intoxication Opiate use disorder, severe in early remission Cannabis use disorder Unspecified anxiety disorder Unspecified depressive disorder Rule out delirium Impression: 26-year-old single female presents with rhabdomyolysis and symptoms of gabapentin intoxication. At this point potential other causes of altered mental status and neurological function cannot be ruled out and etiology of present state is likely multifactorial. She reports almost one month of sobriety from opiates with MMT and would benefit from follow-up supportive care for opiate use disorder once discharged. Provisional Treatment Plan: 1. Continue to monitor neurological status and vital signs closely. 2. Hold gabapentin, diazepam, and hydroxyzine until mentation improves. 3. You may consider holding methadone if s/s of overdose or pt continues to be sedated in AM. Carefully consider risks and benefits as she may begin to experience sx of opiate withdrawl which may cloud and already somewhat unclear clinical picture. 4. Consider neurology referral if current sx do not resolve. 5. Continue Prozac. 6. Appreciate social work referral for disposition planning. 7. This pt may require sitter if confusion increases and family is no longer at bedside. Continue to reassess need. Thank you for including psychiatry in the case, we will continue to follow.
--- NOTE | 2017-01-22 17:30 | NUR ---
PT CONTINUES TO C/O PAIN, MD MAYORGA NOTIFIED, ORDERED TOPICAL VOLTAREN AND SAID SHE WOULD BE UP TO SEE THE PATIENT, PATIENT INFORMED, WILL CONTINUE TO MONITOR.
[2017-01-22 18:12] VITALS: BP 116/60
--- NOTE | 2017-01-22 19:00 | NUR ---
PT C/O ANXIETY AND PAIN, DUE TO CIRCUMSTANCES THIS RN STILL WAITING FOR DOCTOR TO EVALUATE PATIENT BEFORE ADMINISTERING ANY MEDICATION PO, APPLIED TOPICAL VOLTAREN TO PATIENTS NECK AND BACK, PAGED MD, ONCOMING RN AWARE AND WILL FOLLOW UP WITH COVERING FILM OR TAPE LIBRARIAN. WILL CONTINUE TO MONITOR.
[2017-01-23 06:41] VITALS: BP 110/54
--- NOTE | 2017-01-23 09:39 | PN- Psychiatry ---
Assessment/Plan Impression: Identifying Info: 26-year-old single female presents to [facility] emergency department on 01/21/2017 for back pain. Transferred to medical floor for observation subsequently diagnosed with rhabdomyolysis with unknown etiology. SUBJECTIVE "Ok right now." Pt reports improvement in lethargy and confusion. Expresses wish for f/u care at an IOP program. Agreeable to increase in Prozac for anxiety symptoms. Would like to restart atarax. Pt's mother, Kely, who is at bedside discloses that the pts sister has had a similar poor reactionb to gabapentin in the past. Of note she suggests the pt be started on ativan for anxiety, educated on issues this may present due to hx of PSA and wish for day program tx. OBJECTIVE Mental Status Exam Presentation/Appearance: Cooperative with evaluation. Hospital garb. Sitting in bed. Orientation: Oriented to self, place, situation and month but not date. Sensorium: Awake and alert Eye contact: Appropriate Affect: Somewhat blunted but more expressive than yesterday Mood: Euthymic Depression: Denies Anxiety: 02/06 Thought Content: - Denies SI/HI, AH/VH, PI. States and also believes they will not kill themselves. - Denies Hopeless/Helpless Thoughts Thought Process: Linear Speech: Normal tone and rate Judgment: Fair Insight: Fair Cognition: Memory: Grossly intact Attention/Concentration: Grossly intact Brief ROS Gait: Unsteady (not observed) Sleep: 4 hours last night Appetite: Adequate ASSESSMENT 26-year-old single female presents with rhabdomyolysis and symptoms of gabapentin intoxication presents today as greatly improved. Appears treatment motivated at this time. Would benefit from increase in Prozac and potential restart of atarax for anxiety. Differential diagnosis Gabapentin intoxication, resolved Opiate use disorder, severe, in early remission Cannabis use disorder Unspecified anxiety disorder Unspecified depressive disorder Rule out delirium Suggestion: 1. Please increase Prozac to 60mg daily. 2. Please restart atarax 100mg TID PRN anxiety if mentation remains WNL. 3. Appreciate social work referral for disposition planning. Thank you for including psychiatry in this case, we will continue to follow. Subjective Subjective: (as above) Objective Last 24 Hrs of Vital Signs/I&O Current Medications Sig/Vernon Start time Last Medication Dose Route Stop Time Status Admin Acetaminophen 650 MG .STK-MED ONE 01/23 110 DC PO 04/26 0111 Acetaminophen 650 MG Q4-6 PRN PRN 01/22 1645 AC 01/23 PO 0538 Clindamycin 150 MG 4 TIMES/DAY 01/21 2200 AC 01/23 PO 0909 Cyclobenzaprine HCl 10 MG BID 01/22 1113 DC 01/22 PO 1126 Diazepam 5 MG BID PRN 01/22 1200 DC 01/22 PO 1254 Diclofenac Sodium 1 ELLIOTT 4 TIMES/DAY PRN 01/22 1815 AC 01/23 TOP 0538 Fluoxetine HCl 40 MG DAILY 01/22 1000 AC 01/23 PO 0909 Gabapentin 300 MG AT BEDTIME 01/22 2200 CAN PO Gabapentin 300 MG TID 01/22 1600 DC 01/22 PO 1622 Gabapentin 400 MG 4 TIMES/DAY 01/21 2200 DC 01/22 PO 0931 Heparin Sodium 5,000 UNIT Q8 01/21 2200 AC 01/23 (Porcine) SC 0538 Hydroxyzine HCl 100 MG TID 01/21 2200 DC 01/22 PO 0931 Ibuprofen 600 MG TID PRN 01/23 0830 AC PO Lidocaine 1 PAT DAILY 01/23 1000 AC EXT Methadone HCl 40 MG DAILY 01/22 1000 AC 01/23 PO 0909 Nicotine 21 MG Q24 01/21 2045 AC 01/23 TOP 0908 Patient Medication 1 ED .STK-MED ONE 01/22 1403 DC Teaching ED 01/22 1404 Sodium Chloride 1,000 ML Q13H 01/22 0830 DC 01/22 IV 0854 Tramadol HCl 50 MG ONCE ONE 01/22 2145 DC 01/22 PO 01/22 2146 2202 Vital Signs Date Time Temp Pulse Resp B/P B/P Pulse O2 O2 Flow FiO2 Mean Ox Delivery Rate 01/23 0641 98.1 57 20 110/54 96 Room Air 01/22 181 98.8 66 20 116/60 97 Room Air 01/22 1422 99.5 68 20 118/78 94 Room Air Intake & Output 01/23 1600 01/23 0800 01/23 0000 Intake Total 200 400 Output Total Balance 200 400 Intake, Oral 200 400
--- NOTE | 2017-01-23 10:42 | NUR ---
PT C/O PAIN 05/09. LIDODERM PATCH AND IBUPROFEN AVAILABLE AND REQUESTED BY PATIENT. MD DAY AWARE. WILL CONTINTUE TO MONITOR.
--- NOTE | 2017-01-23 11:12 | PN- Housestaff ---
SHAY MCCABE 01/23/17 1111: Subjective Follow-up For: rhabdomyolysis history of polysubstance abuse Subjective: Seen and examined patient, mother at bedside. continues to complain of of neck pain and today feels like she is unable to walk. She also continues to experience diplopia intermittently. Reports urinary incontinence overnight when sleeping. Denies shortness of breath, chest pain, palpitations, dysuria, abdominal pain. Review of Systems Constitutional: Denies: chills, diaphoresis, fever, malaise, weakness, unexplained weight loss. Cardiovascular: Denies: chest pain, edema, orthopena, palpitations, peripheral edema, syncope. Respiratory: Denies: cough, hemoptysis, orthopnea, short of breath, sputum production, stridor, wheezing. Gastrointestinal: Denies: abdominal pain, bloating, constipation, diarrhea, distention, bowel incontinence, melena, nausea, bloody stool, changes in stool, vomiting, steatorrhea. Objective Last 24 Hrs of Vital Signs/I&O Vital Signs Date Time Temp Pulse Resp B/P B/P Pulse O2 O2 Flow FiO2 Mean Ox Delivery Rate 01/23 1643 98.7 84 20 126/70 95 Room Air 01/23 1500 98.3 84 20 120/60 96 01/23 0641 98.1 57 20 110/54 96 Room Air 01/22 1812 98.8 66 20 116/60 97 Room Air Intake & Output 01/23 1600 01/23 0800 01/23 0000 Intake Total 680 200 400 Output Total 700 Balance -20 200 400 Intake, IV 0 Intake, Oral 680 200 400 Number 0 Bowel Movements Output, Urine 700 Physical Exam General Appearance: Alert, Oriented X3, Cooperative, No Acute Distress Skin: scars on face Cardiovascular: Regular Rate, Normal S1, Normal S2 Lungs: Clear to Auscultation, Normal Air Movement Abdomen: Normal Bowel Sounds, Soft, No Tenderness Neurological: Normal Speech, Normal Tone, Sensation Intact (over s3/s4), Cranial Nerves 3-12 NL, strength 3/5 x4, hypereflexia b/l , plantar reflexes Extremities: No Edema Current Medications: Current Medications Sig/Vernon Start time Last Medication Dose Route Stop Time Status Admin Acetaminophen 650 MG .STK-MED ONE 01/23 0537 DC PO 01/23 0538 Acetaminophen 650 MG .STK-MED ONE 01/23 0110 DC PO 01/23 0111 Acetaminophen 650 MG Q4-6 PRN PRN 01/22 1645 AC 01/23 PO 0538 Clindamycin 150 MG 4 TIMES/DAY 01/21 2200 AC 01/23 PO 1711 Diazepam 5 MG BID PRN 01/22 1200 DC 01/22 PO 1254 Diclofenac Sodium 1 ELLIOTT 4 TIMES/DAY PRN 01/22 1815 AC 01/23 TOP 0538 Fluoxetine HCl 60 MG DAILY 01/24 1000 AC PO Fluoxetine HCl 40 MG DAILY 01/22 1000 DC 01/23 PO 0909 Gabapentin 300 MG AT BEDTIME 01/22 2200 CAN PO Heparin Sodium 5,000 UNIT Q8 01/21 2200 AC 01/23 (Porcine) SC 1411 Hydroxyzine HCl 75 MG TID 01/23 1600 AC 01/23 PO 1700 Hydroxyzine HCl 50 MG TID 01/23 1000 DC PO Hydroxyzine HCl 100 MG TID 01/21 2200 DC 01/22 PO 0931 Ibuprofen 600 MG TID PRN 01/23 0830 AC 01/23 PO 1039 Lidocaine 1 PAT DAILY 01/23 1000 AC 01/23 EXT 1711 Methadone HCl 40 MG DAILY 01/22 1000 AC 01/23 PO 0909 Nicotine 21 MG Q24 01/21 2045 AC 01/23 TOP 1711 Sodium Chloride 1,000 ML Q13H 01/22 0830 DC 01/22 IV 0854 Tramadol HCl 50 MG Q6 01/23 1200 AC 01/23 PO 1711 Tramadol HCl 50 MG ONCE ONE 01/22 2145 DC 01/22 PO 01/22 2146 2202 Last 24 Hrs of Lab/Kg Results Last 24 Hrs of Labs/Mics: Laboratory Tests 01/23/17 0920: Urinalysis LIGHT H, Urine Color YEL, Urine Clarity CLEAR, Urine pH 7.0, Ur Specific Dyer 1.010, Urine Protein NEG, Urine Ketones NEG, Urine Nitrite NEG, Urine Bilirubin NEG, Urine Urobilinogen 0.2, Ur Leukocyte Esterase SMALL H, Ur Microscopic SEDIMENT EXAMINED, Urine RBC RARE, Urine WBC 5-10 H, Ur Epithelial Cells FEW, Urine Bacteria FEW H, Urine Mucus RARE, Urine Hemoglobin NEG, Urine Glucose NEG Microbiology 01/23 0920 URINE ROUT: Urine Culture - RECD Assessment/Plan Assessment: 26-year-old lady with a PMH significant for opiate dependence on methadone, depression and anxiety current admission with back pain of 10 days duration. On admission was found to have leukocytosis at 14 and elevated CPK at 2515. A series of MRI studies were done was concerning for abnormal edema paraspinal muscles. Day of admission: lethargic has improved, afebrile, vitals stable, reports worsening weakness and inablility to walk even with assistance. Problem list: Rhabdomyolysis ( ? drug induced) Transaminitis History of opiate dependence currently on methadone Plan: -I personally walked the patient with nursing staff, although she was able to stand, she had tremors of her upper and lower extremities which were not noticeable when she was lying down. She was unable to walk despite a walker and and assist of two. This is a new change and was noticed yesterday. unclear at this time the reason for her weakness, will obtain MRI head to r/o Multiple sclerosis, possible underlying systemic infection given her recent tooth infection however she remains afebrile,however of note she did have an elevated white count on admission her symptoms could also be secondary to non organic cause but this will be a diagnosis of exclusion. Will also obtain neuro consult as she will need further work up she will be made full admitt to inpatient. Psyhiatry consulted, appreciate recommendations will get social work on board gabapentin discontineu -Continue methadone, fluoxetine dose increased to 60 mg , atarax decreased to 75 mg, diazepam 5 mg BID - continue clindamycin for her dental infection regular diet DVT ppx sc heparin full code Problem List: 1. Rhabdomyolysis 2. Depression 3. Anxiety 4. Polysubstance (excluding opioids) dependence Pain Ratin Pain Location: neck Pain Goal: Pain 4 or less Pain Plan: will add lidocaine patch daily, and tramadol 50 mg PRN q6 Tomorrow's Labs & Rationales: none required GUERLINE AVENDANO MD 01/23/17 1148: Attending MD Review Statement Attending Statement Attending MD Statement: examined this patient, discuss w/resident/PA/STEM SETTER, agreed w/resident/PA/STEM SETTER, discussed with family, reviewed EMR data (avail), discussed with nursing, discussed with case mgmt, reviewed images Attending Assessment/Plan: Entire team including the resident, advertising intern myself and the psychiatry BASEBALL CLUB MANAGER spoke to the patient and the patient's mother at length. She is much more awake today and I believe the sedation from the polypharmacy is less of an issue today granted that we stopped the gabapentin, stopped the hydroxyzine and the Valium and continued the methadone and Prozac. Now she's complaining that we are under medicating her and that she was given all of this for severe anxiety and pain. I tried to explain the very fine balance between polypharmacy and oversedation versus dealing with her symptoms. We reached a compromise of keeping the Atarax at 75mg 3 times a day, using low-dose tramadol rarely as needed for pain, using Lidoderm patch and Voltaren gel for pain and increasing the Prozac to 60 mg a day. She was complaining of some urinary incontinence however I don't think it' s real incontinence. I think that she was so sedated that she could not make it to the bathroom on time. Her initial UA was completely negative, MRI of the entire spine was negative and the repeat UA today has 5-10 white cells which is still essentially negative. At this point the plan is that she'll eat lunch and likely be discharged today. She is going to stay in her uncle's house, I have spoken to both the psychiatry BASEBALL CLUB MANAGER and the nephrology social worker, she is going to follow with the [facility] and they're going to set her up for IOP.
[2017-01-23] MEDS ORDERED: HYDROXYZINE HCL25 M2 PO (11:20)
[2017-01-23] MEDS ORDERED: LIDODERM1 EACH EXT (11:20)
--- NOTE | 2017-01-23 11:34 | Patient Discharge Instructions ---
Discharge Instructions General Discharge Information You were seen/treated for: Lethargic weakness You had these procedures: MRI cervical/thoracic/lumbar spine MRI head Repeat MRI cervical/thoracic/lumbar spine Special Instructions: please follow up with your PCP within one week of discharge please follow up at your Methadone clinic tommorrow Please ensure you talk to your Methadone clinic about setting up IOP for you Please follow up with your LOCKSTITCH WAISTLINE JOINER Isa Tino Diet Recommended Diet: Regular Acute Coronary Syndrome Inclusion Criteria At DC or during hospital stay patient has or had the following: ACS DIAGNOSIS No Discharge Core Measures Meds if any: Prescribed or Continued at Discharge Meds if any: NOT Prescribed or Continued at Discharge Congestive Heart Failure Inclusion Criteria At DC or during hospital stay patient has or had the following: CHF DIAGNOSIS No Discharge Core Measures Meds if any: Prescribed or Continued at Discharge Meds if any: NOT Prescribed or Continued at Discharge Cerebrovascular accident Inclusion Criteria At DC or during hospital stay patient has or had the following: CVA/TIA Diagnosis No Discharge Core Measures Meds if any: Prescribed or Continued at Discharge Meds if any: NOT Prescribed or Continued at Discharge Venous thromboembolism Inclusion Criteria VTE Diagnosis No VTE Type NONE VTE Confirmed by (Test) NONE Discharge Core Measures - Per Current guidelines, there needs to be overlap - treatment for the first 5 days of Warfarin therapy. - If discharged on Warfarin prior to 5 days of - overlap therapy, the patient will need to be - assessed for post discharge needs including - *Post discharge parental anticoagulation - *Warfarin and/or parental anticoagulation education - *Follow up date to check INR post discharge At least 5 days overlap therapy as Inpatient No Meds if any: Prescribed or Continued at Discharge Note: Overlap Therapy is Warfarin and Anticoagulant Meds if any: NOT Prescribed or Continued at Discharge
[2017-01-23] MEDS ORDERED: TRAMADOL HCL50 M1 PO (11:43)
[2017-01-23] MEDS ORDERED: VOLTAREN100 GM TOP (11:43)
[2017-01-23] MEDS ORDERED: FLUOXETINE HCL20 M2 PO (11:43)
[2017-01-23 15:00] VITALS: BP 120/60
--- NOTE | 2017-01-23 15:18 | NUR ---
PT LEFT FLOOR VIA WHEELCHAIR TO MRI. WHILE DOWN IN MRI LIDODERM AND NICOTINE PATCH REMOVED
--- NOTE | 2017-01-23 16:05 | NUR ---
PHYSICAL THERAPY. PT CONSULT RECEIVED AND CHART REVIEWED. Pt CURRENTLY FIDEL AT MRI OF THE HEAD TO R/O MS. PT WILL F/U APPROPRIATE.
--- NOTE | 2017-01-23 16:15 | NUR ---
PT BACK TO FLOOR VIA WHEELCHAIR FROM MRI, REPLACED NICOTINE PATCH AND LIDODERM PATCH, MD WERNER AWARE.
[2017-01-23 16:43] VITALS: BP 126/70
--- NOTE | 2017-01-23 17:17 | MRI REPORT ---
EXAMINATION: MR BRAIN WITHOUT CONTRAST CLINICAL INFORMATION: Diplopia. Weakness. Difficulty walking. Assess for multiple sclerosis. COMPARISON: None TECHNIQUE: MRI of the brain without contrast was obtained using routine sequences. FINDINGS: Several of the series are motion degraded. Repeats were attempted. No acute abnormality. Given substantial motion on the majority of the series, the signal within the brain parenchyma appears grossly normal. Callosal volume is maintained. No focal reduced diffusion is seen to suggest acute or subacute cerebral ischemia. No intracranial mass, intracerebral edema, intra-axial blood products, midline shift, or extra-axial collection is visualized. The ventricles and sulcal spaces appear normal. Normal arterial and venous vascular flow voids are present. The paranasal sinuses, nasal cavity, nasopharynx, and mastoid air cells are clear. The orbits are unremarkable. The craniocervical junction and supersellar region appear unremarkable. Marrow signal is preserved. No evidence of upper cervical adenopathy. IMPRESSION: Motion degraded examination. No acute intercranial abnormality. No convincing signal abnormality within the brain.
--- NOTE | 2017-01-23 17:34 | Cons- Neurology ---
General Information and HPI Consulting Request Date of Consult: 01/23/17 Requested By: JUAN ALBERTO DUPONT,GUERLINE Wade Reason for Consult: Severe whole back pain, neck pain and leg weakness. Source of Information: patient, family, old records Exam Limitations: no limitations History of Present Illness: This is a 26 year old right handed woman who presented to the after developing severe back pain. She is not known for back pain and has never suffered from it. At baseline she has had severe anxiety and depression that were poorly managed. She ended up resorting to recreational drugs to soothe her anxiety. More recently she has been placed on methadone in attempt to quell her dependence. She was in her usual state of health until ten days ago when she had a root canal for dental infection. She was then placed on antibiotics for it. She was placed on Clindamycin. Of note is that she was also placed on a large dose of gabapentin for her anxiety recently (has been stopped since arrival). About 3 days ago she started suffering from back pain that has progressed down to her legs. Today, her legs are evidently weak proximally. She was also found to have significant rhabdomyolysis and edema in the paraspinal muscles. She denies any fever, chills, rashes or joint pain. Per the nurse she has a large aphthous ulcer in her mouth. She also noted stacked vertical double vision that has since resolved. Finally, she notes nocturia, wetting the bed three times already, but being able to control her bladder when awake. Allergies/Medications Allergies: Coded Allergies: Penicillins (ANAPHALAXIS 01/21/17) Home Med List: Clindamycin HCl 150 MG CAPSULE 1 CAP PO 4 TIMES/DAY ANTIBIOTIC, INFECTION ( Reported) Diclofenac Sodium (Voltaren) 1 % GEL..GRAM. 1 ELLIOTT TOP 4 TIMES/DAY PRN PAIN SCALE 1-3 (MILD) Fluoxetine HCl 40 MG CAPSULE 1 CAP PO QAM MENTAL HEALTH (Reported) Fluoxetine HCl 20 MG CAPSULE 60 MG PO DAILY PRN ANXIETY Gabapentin 400 MG CAPSULE 1 CAP PO 4 TIMES/DAY UNKNOWN (Reported) Hydroxyzine HCl 25 MG TABLET 75 MG PO TID anxiety Hydroxyzine Pamoate 50 MG CAPSULE 2 CAP PO TID UNKNOWN (Reported) Lidocaine (Lidoderm) 5 % ADH..PATCH 1 PAT EXT DAILY PRN Pain Methadone HCl 10 MG/ML ORAL.CONC 40 MG PO DAILY MAINTENCE (Reported) Norethindrone AC-Eth Estradiol (Loestrin 21 1-20 Tablet) 1 MG-20 MCG TABLET 1 TAB PO DAILY BC (Reported) Tramadol HCl 50 MG TABLET 50 MG PO Q6 PRN PAIN Current Medications: Current Medications Sig/[place] Start time Last Medication Dose Route Stop Time Status Admin Acetaminophen 650 MG .STK-MED ONE 01/23 0537 DC PO 01/23 0538 Acetaminophen 650 MG .STK-MED ONE 01/23 0110 DC PO 01/23 0111 Acetaminophen 650 MG Q4-6 PRN PRN 01/22 1645 AC 01/23 PO 0538 Clindamycin 150 MG 4 TIMES/DAY 01/21 2200 AC 01/23 PO 1711 Diazepam 5 MG BID PRN 01/22 1200 DC 01/22 PO 1254 Diclofenac Sodium 1 ELLIOTT 4 TIMES/DAY PRN 01/22 1815 AC 01/23 TOP 0538 Fluoxetine HCl 60 MG DAILY 01/24 1000 AC PO Fluoxetine HCl 40 MG DAILY 01/22 1000 DC 01/23 PO 0909 Gabapentin 300 MG AT BEDTIME 01/22 2200 CAN PO Heparin Sodium 5,000 UNIT Q8 01/21 2200 AC 01/23 (Porcine) SC 1411 Hydroxyzine HCl 75 MG TID 01/23 1600 AC 01/23 PO 1700 Hydroxyzine HCl 50 MG TID 01/23 1000 DC PO Hydroxyzine HCl 100 MG TID 01/21 2200 DC 01/22 PO 0931 Ibuprofen 600 MG TID PRN 01/23 0830 AC 01/23 PO 1039 Lidocaine 1 PAT DAILY 01/23 1000 AC 01/23 EXT 1711 Methadone HCl 40 MG DAILY 01/22 1000 AC 01/23 PO 0909 Nicotine 21 MG Q24 01/21 2045 AC 01/23 TOP 1711 Sodium Chloride 1,000 ML Q13H 01/22 0830 DC 01/22 IV 0854 Tramadol HCl 50 MG Q6 01/23 1200 AC 01/23 PO 1711 Tramadol HCl 50 MG ONCE ONE 01/22 214 DC 01/22 PO 01/22 Review of Systems Review of Systems: As per HPI otherwise negative. Past History Travel History Traveled to [place] past 21 day No Medical History Blood Transfusion Hx: No Neurological: NONE EENT: NONE Cardiovascular: NONE Respiratory: asthma Gastrointestinal: NONE Hepatic: NONE Renal: NONE Musculoskeletal: NONE Psychiatric: anxiety, depression Endocrine: NONE Blood Disorders: NONE Cancer(s): NONE ELECTRICAL SYSTEMS DRAFTER/Reproductive: NONE Surgical History Surgical History: appendectomy Psychosocial History Where Do You Live? Home Who Do You Live With? Uncle Smoking Status: Current Everyday Smoker ETOH Use: denies use Illicit Drug Use: denies illicit drug use Exam & Diagnostic Data Vital Signs and I&O Vital Signs Date Time Temp Pulse Resp B/P B/P Pulse O2 O2 Flow FiO2 Mean Ox Delivery Rate 01/23 1643 98.7 84 20 126/70 95 Room Air 01/23 1500 98.3 84 20 120/60 96 01/23 0641 98.1 57 20 110/54 96 Room Air 01/22 1812 98.8 66 20 116/60 97 Room Air Intake & Output 01/23 1600 01/23 0800 01/23 0000 Intake Total 680 200 400 Output Total 700 Balance -20 200 400 Intake, IV 0 Intake, Oral 680 200 400 Number 0 Bowel Movements Output, Urine 700 Physical Exam: Alert and oriented x3. Fluent and comprehends. S1 and S2 are normal . RRR. EOMI, DEAN, mild left gaze nystagmus, face symmetric, tongue and uvula midline. VF intact. TPZ and SCM strong. V1-V3 sensation intact. Strength reduced proximally in arms to +4/5 but in legs 3/5 with significant tremor on attempting to pick them off the bed. Severe hyperreflexia in legs WITH negative Babinski's. There is also some clonus beats in feet. FNF is normal. Gait deferred. Last 48 Hours of Lab Results: Laboratory Tests 01/23 01/22 0920 0725 Chemistry Sodium (137 - 145 mmol/L) 138 Potassium (3.5 - 5.1 mmol/L) 3.7 Chloride (98 - 107 mmol/L) 103 Carbon Dioxide (22 - 30 mmol/L) 27 Anion Gap (5 - 16) 8 BUN (7 - 17 mg/dL) 7 Creatinine (0.5 - 1.0 mg/dL) 0.6 Estimated GFR (>60 ml/min) > 60 BUN/Creatinine Ratio (7 - 25 %) 11.7 Total Bilirubin (0.2 - 1.3 mg/dL) 0.6 Direct Bilirubin (< 0.4 mg/dL) 0.2 AST (14 - 36 U/L) 63 H ALT (9 - 52 U/L) 99 H Alkaline Phosphatase (<127 U/L) 44 Creatine Kinase (30 - 135 U/L) 957 H Total Protein (6.3 - 8.2 g/dL) 5.7 L Albumin (3.5 - 5.0 g/dL) 3.0 L Hematology CBC w Diff NO MAN DIFF REQ WBC (4.8 - 10.8 /CUMM) 13.2 H RBC (4.20 - 5.40 /CUMM) 3.77 L Hgb (12.0 - 16.0 G/DL) 11.6 L Hct (37 - 47 %) 34.3 L MCV (81.0 - 99.0 FL) 90.9 MCH (27.0 - 31.0 PG) 30.6 RDW (11.5 - 14.5 %) 12.9 Plt Count (130 - 400 /CUMM) 299 MPV (7.4 - 10.4 FL) 6.6 L Gran % (42.2 - 75.2 %) 52.9 Lymphocytes % (20.5 - 51.1 %) 37.4 Monocytes % (1.7 - 9.3 %) 7.2 Eosinophils % (0 - 5 %) 2.2 Basophils % (0.0 - 2.0 %) 0.3 Absolute Granulocytes (1.4 - 6.5 /CUMM) 7.0 H Absolute Lymphocytes (1.2 - 3.4 /CUMM) 4.9 H Absolute Monocytes (0.10 - 0.60 /CUMM) 1.0 H Absolute Eosinophils (0.0 - 0.7 /CUMM) 0.3 Absolute Basophils (0.0 - 0.2 /CUMM) 0 PUBS MCHC (33.0 - 37.0 G/DL) 33.7 Urines Urinalysis LIGHT H Urine Color (YEL,AMB,STR) YEL Urine Clarity (CLEAR) CLEAR Urine pH (5.0 - 8.0) 7.0 Ur Specific [place] (1.001 - 1.035) 1.010 Urine Protein (NEG,<30 MG/DL) NEG Urine Ketones (NEG) NEG Urine Nitrite (NEG) NEG Urine Bilirubin (NEG) NEG Urine Urobilinogen (0.1 - 1.0 EU/dl) 0.2 Ur Leukocyte Esterase (NEG) SMALL H Ur Microscopic SEDIMENT EXAMINED Urine RBC (0 - 5 /HPF) RARE Urine WBC (0 - 2 /HPF) 5-10 H Ur Epithelial Cells (NONE,FEW) FEW Urine Bacteria (NEG/NONE) FEW H Urine Mucus (FEW,NONE) RARE Urine Hemoglobin (NEG) NEG Urine Glucose (N MG/DL) NEG 01/21 2240 Chemistry Troponin I (< 0.11 ng/ml) < 0.01 Imaging/Other Studies: MRI brain>>> IMPRESSION: Motion degraded examination. No acute intercranial abnormality. No convincing signal abnormality within the brain. FINDINGS: Cervical spine: The marrow signal is homogeneous. No endplate erosive changes are evident. There is no marrow edema. The discs are fairly well-hydrated. There are mild posterior annular bulges at C3-C4, C5-C6, and C6-C7. No disc protrusions are seen. There is no central canal stenosis or foraminal narrowing. No epidural soft tissue abnormality is visible. Cord signal is normal. There is no syrinx. The imaged portions of the brain parenchyma demonstrate no acute abnormality. There is edema throughout the posterior paraspinal muscles from the C2 level extending into the upper thoracic levels. No soft tissue fluid collection is seen. The vertebral artery flow voids are maintained. Thoracic spine: The marrow signal is homogeneous. The discs are fairly well-hydrated. There is mild to moderate disc space narrowing with endplate Schmorl's node formation at T7-T8 level and a very mild annular bulge. At the T3-T4 level, there is a minimal disc bulge posteriorly. At the T6-T7 level, there is a very small central disc protrusion which abuts the ventral cord. There is no central canal stenosis or foraminal narrowing. No epidural fluid collection is seen. No syrinx is identified. Edema is visible in the posterior paraspinal soft tissues extending to the T3 level. Lumbar spine: The discs are well-hydrated. There are no compression fractures or subluxations. Mild fatty marrow endplate change is noted inferiorly at the L2 level. The central canal and neural foramina are widely patent. The distal cord, conus tip, and cauda equina nerve roots are normal. No epidural fluid collection is seen. There are no disc protrusions. There are edematous change is present in the posterior paraspinal muscles bilaterally spanning from the lower thoracic to the lumbar levels and to the sacrum inferiorly. No discrete fluid collection is seen. MRI spine>>> IMPRESSION: No epidural fluid collection. Mild spondylitic changes in the midthoracic spine. Small disc protrusion at T6-T7 abutting the ventral cord. No cord signal abnormality or syrinx. Minimal annular bulges in the cervical spine which is otherwise normal. No lumbar disc pathology. No imaging findings of discitis/osteomyelitis. Abnormal edema paraspinal muscles posteriorly throughout much of the cervical spine and lumbar spine with patchy areas of edema also present in the posterior paraspinal musculature in the upper and lower thoracic spine of indeterminate etiology. Imaging findings can be seen in the setting of rhabdomyolysis and clinical correlation is suggested. Imaging findings discussed with Dr. Fields at 4:40 PM on 01/21/2017. Assessment/Plan Assessment: 26 year old presenting with Rhabdomyolysis, paraparesis and significant hyperreflexia. She also had double vision that resolved and nocturia. Her neck hurts. In this setting the differential is long. I agree that it is suspicious that gabapentin could have cause the sudden Rhabdomyolysis and diplopia if she was sensitive to it. However, it could even account for proximal limb weakness due to muscle breakdown. However, it does not explain her hyperreflexia. Further, she has been off of it for three days and seems to have gotten weaker. Alternative explanations are myelitis, post-infectious myopathy, or other infectious etiologies. Recommendations: 1. Recommend placing her back on NS fluids at 150cc/hr and monitor CK DAILY until normalizes. 2. If not getting better recommend LP assessing with IgG index, oligoclonal bands, Lyme KATT CSF, VDRL and HSV1 and 2 PCR. Protein/glucose/cytology/cells in CSF. 3. Check Lyme in serum and HIV screen. 4. Check ESR, TIKA, ANCA and aldolase for myopathy. 5. Consider repeating C-spine MRI WITH CONTRAST. 6. If Tramadol helps her for pain (semi-opiate) should be given to her in a controlled manner at 50mg q8h PRN despite her history. Consult Acknowledgment - Thank you for your consult request.
[2017-01-23 20:32] VITALS: BP 124/60
[2017-01-24] VITALS: BP 140/86
[2017-01-24 04:44] VITALS: BP 122/70
--- NOTE | 2017-01-24 07:03 | PN- Housestaff ---
Subjective Follow-up For: rhabdomyolysis history of polysubstance abuse progressive weakness Subjective: Seen and examined patient, mother at bedside. Continues to complain of of neck pain and still feels too weak to walk. She also continues to experience diplopia intermittently. Reports one episode urinary incontinence overnight when sleeping. She is able to control her bladder during the day. Denies shortness of breath, chest pain, palpitations, dysuria, abdominal pain. Review of Systems Constitutional: Reports: malaise, weakness. Denies: chills, diaphoresis, fever, unexplained weight loss. Cardiovascular: Denies: chest pain, edema, orthopena, palpitations, peripheral edema, syncope. Respiratory: Denies: cough, hemoptysis, orthopnea, short of breath, sputum production, stridor, wheezing. Gastrointestinal: Denies: abdominal pain, bloating, constipation, diarrhea, distention, bowel incontinence, melena, nausea, bloody stool, changes in stool, vomiting, steatorrhea. Genitourinary: Reports: frequency. Denies: discharge, dysuria, hematuria, hesitation, nocturia , pain, urgency. Objective Last 24 Hrs of Vital Signs/I&O Vital Signs Date Time Temp Pulse Resp B/P B/P Pulse O2 O2 Flow FiO2 Mean Ox Delivery Rate 01/24 1418 98.1 82 18 130/80 98 Room Air 01/24 0800 Room Air 01/24 0444 98.6 64 18 122/70 97 Room Air 01/24 0000 98.7 90 18 140/86 96 Room Air 01/23 2032 99.4 76 20 124/60 95 Room Air Intake & Output 01/24 1600 01/24 0800 01/24 0000 Intake Total 950 1350 450 Output Total 200 Balance 750 1350 450 Intake, IV 150 1000 150 Intake, Oral 800 350 300 Number 1 Bowel Movements Output, Urine 200 Physical Exam General Appearance: Alert, Oriented X3, Mild Distress Cardiovascular: Regular Rate, Normal S1, Normal S2 Lungs: Clear to Auscultation, Normal Air Movement Abdomen: Normal Bowel Sounds, Soft, No Tenderness Neurological: Normal Speech, Strength at 5/5 X4 Ext, Normal Tone, Sensation Intact, Cranial Nerves 3-12 NL, hypereflexia in lower extremities, babinski neg Extremities: No Edema Assessment/Plan Assessment: 26-year-old lady with a PMH significant for opiate dependence on methadone, depression and anxiety current admission with back pain of 10 days duration. On admission was found to have leukocytosis at 14 and elevated CPK at 2515. A series of MRI studies were done was concerning for abnormal edema paraspinal muscles. Day 3 of admission: lethargic has improved considerably, remains afebrile, vitals stable, continuing weakness and inablility to walk even with assistance. MRI with contrast significant for small disc bulge at T3-T4 and small disc protrusion at T6-T7 Problem list: Rhabdomyolysis (? drug induced)-resolving Transaminitis History of opiate dependence currently on methadone weakness tooth infection Plan: Spoke to Dr. Hidalgo and we reviewed the MRI images together, mild cord flattening with a cord signal cannot r/o possible mild cord compression, will start trial of Decadron 4mg q8h to reduce inflammation and edema around cord. Neurology and Psychiatry consulted, appreciate recommendations -Continue methadone, fluoxetine dose increased to 60 mg , atarax decreased to 75 mg, diazepam 5 mg BID - continue clindamycin for her dental infection regular diet DVT ppx sc heparin full code Problem List: 1. Rhabdomyolysis 2. Depression 3. Anxiety 4. Polysubstance (excluding opioids) dependence 5. Cord compression Pain Ratin Pain Location: neck Pain Goal: Pain 4 or less Pain Plan: continue current regimen Tomorrow's Labs & Rationales: none required
[2017-01-24 11:08] LABS: ABSOLUTE BASOPHIL COUNT 0 /CUMM (0.0-0.2); ABSOLUTE EOSINOPHIL COUNT 0.4 /CUMM (0.0-0.7); ABSOLUTE GRANULOCYTE CT 7.5 /CUMM (1.4-6.5); ABSOLUTE LYMPH COUNT 3.4 /CUMM (1.2-3.4); ABSOLUTE MONOCYTE COUNT 0.6 /CUMM (0.10-0.60); BASOPHIL % 0.3 % (0.0-2.0); EOSINOPHIL % 3.2 % (0-5); GRANULOCYTE % 62.7 % (42.2-75.2); HEMATOCRIT 38.3 % (37-47); MEAN CORPUSCULAR HGB 30.3 PG (27.0-31.0); MEAN CORPUSCULAR HGB CONC 33.3 G/DL (33.0-37.0); MEAN PLATELET VOLUME 6.2 FL (7.4-10.4); PLATELET COUNT 345 /CUMM (130-400); RED BLOOD CELL CT 4.21 /CUMM (4.20-5.40); WHITE BLOOD CELL COUNT 11.9 /CUMM (4.8-10.8)
--- NOTE | 2017-01-24 13:27 | MRI REPORT ---
MRI OF THE CERVICAL, THORACIC, AND LUMBAR SPINE WITH AND WITHOUT IV CONTRAST CLINICAL INFORMATION: Weakness. Question myelitis/abscess. COMPARISON: Brain MRI 01/23/2017. TECHNIQUE: Multiplanar multisequence MR imaging of the cervical, thoracic, and lumbar spine obtained before and following the administration of 15 mL of OptiMARK intravenous contrast without complication. FINDINGS: Decreasing edema within the paraspinal muscles posteriorly throughout the cervical spine and lumbar spine that remains indeterminate and may be secondary to resolving rhabdomyolysis or muscular strain injury. MR appearance of the cervical spine remains stable. There is no bone marrow edema. There are no acute fractures. The craniocervical junction is normal. No pathologic intrathecal enhancement. No pathologic intraosseous enhancement. Cerebellar tonsillar position is normal. Assessment for cord signal abnormality is nondiagnostic given the degree of artifact. The cervical arterial flow voids are maintained. Small annular disc bulges at the C3-C4, C5-C6, and C6-C7 levels remain stable. There is no severe central canal stenosis and there is no severe foraminal stenosis within the cervical spine. Thoracic alignment is normal. Vertebral body heights are maintained. There is moderate disc volume loss at the T7-T8 level that is stable. There is a stable appearing small central disc protrusion at the T6-T7 level that abuts the ventral cord. Possible mild increased signal within the ventral cord at this level, limitedly assessed given the degree of artifact. The central canal remains patent. Small disc bulge at T3-T4 and small disc protrusion at T6-T7 remain stable. No pathologic intrathecal nor intraosseous enhancement within the thoracic spine to There is no severe central canal stenosis and there is no severe foraminal stenosis within the thoracic spine. There is no bone marrow edema within the lumbar spine. No acute fractures. Vertebral body heights are maintained. Disc volumes are preserved. No pathologic intrathecal nor intraosseous enhancement within the lumbar spine. The conus terminates at the L1 level. Mild fatty marrow endplate changes anteriorly at L2 is stable. There are no disc herniations. No central canal stenosis and no foraminal stenosis. Extrarenal pelvis on the right side. IMPRESSION: - Decreasing edema within the paraspinal muscles posteriorly throughout the cervical spine and lumbar spine that remains indeterminate and may be secondary to resolving rhabdomyolysis or muscular strain injury. There is no MRI evidence of spinal infection. - There is a stable appearing small central disc protrusion at the T6-T7 level that abuts the ventral cord. Possible mild increased signal within the ventral cord at this level, limitedly assessed given the degree of artifact. The central canal remains patent. Assessment for additional cord signal abnormality is very limited given the degree of artifact on this study.
[2017-01-24 14:18] VITALS: BP 130/80
--- NOTE | 2017-01-24 15:08 | PN- Psychiatry ---
Assessment/Plan Impression: Identifying Info: 26-year-old single female presents to [facility] emergency department on 01/21/2017 for back pain. Transferred to medical floor for observation subsequently diagnosed with rhabdomyolysis with unknown etiology. SUBJECTIVE Patient states "I feel judged," and expresses frustration related to changes in her analgesic regimen. Feels she is not being heard. She reports that her back hurts her so much she cannot walk. Continued anxiety with some improvements since yesterday morning. She reports she has had a positive response to clonidine in the past. Pt's mother, Kely, remains at bedside. OBJECTIVE Mental Status Exam Presentation/Appearance: Cooperative with evaluation. Hospital garb. Lying in bed. Orientation: x4 Sensorium: Awake and alert Eye contact: Appropriate Affect: Somewhat blunted Mood: Euthymic Depression: 01/07 Anxiety: 05/09 Thought Content: - Denies SI/HI, AH/VH, PI. States and also believes they will not kill themselves. - Denies Hopeless/Helpless Thoughts Thought Process: Linear Speech: Normal tone and rate Judgment: Fair Insight: Fair Cognition: Memory: Grossly intact Attention/Concentration: Grossly intact Brief ROS Gait: Unsteady Sleep: Continues to be poor Appetite: Adequate ASSESSMENT 26-year-old single female presents with rhabdomyolysis and symptoms of gabapentin intoxication now with clearer mentation. She continues to complain of anxiety and pain. Would be agreeable to trial of clonidine. Differential diagnosis Unspecified anxiety disorder Opiate use disorder, severe, in early remission on MMT Cannabis use disorder Unspecified depressive disorder Gabapentin intoxication, resolved Suggestion: 1. Continue psychotropics as currently ordered. 2. Please start clonidine 0.1 mg BID off label use for anxiety to decrease level of arousal and improve sleep. Hold for systolic BP below 90, diastolic below 60. 3. Appreciate social work referral for disposition planning. Thank you for including psychiatry in this case, we will continue to follow. Subjective Subjective: as above Objective Last 24 Hrs of Vital Signs/I&O Current Medications Sig/[place] Start time Last Medication Dose Route Stop Time Status Admin Acetaminophen 650 MG .STK-MED ONE 01/24 0443 DC PO 01/24 0444 Acetaminophen 650 MG Q4-6 PRN PRN 01/22 1645 AC 01/24 PO 0443 Benzocaine 1 ELLIOTT BID PRN 01/24 0845 AC 01/24 TOP 1306 Clindamycin 150 MG 4 TIMES/DAY 01/21 2200 AC 01/24 PO 1416 Diazepam 10 MG ONCE ONE 01/24 1030 DC 01/24 PO 01/24 1031 1028 Diclofenac Sodium 1 ELLIOTT 4 TIMES/DAY PRN 01/22 1815 AC 01/23 TOP 0538 Fluoxetine HCl 60 MG DAILY 01/24 1000 AC 01/24 PO 0904 Heparin Sodium 5,000 UNIT Q8 01/21 2200 AC 01/24 (Porcine) SC 1417 Hydroxyzine HCl 75 MG TID 01/23 1600 AC 01/24 PO 0905 Ibuprofen 800 MG .STK-MED ONE 01/24 0441 DC PO 01/24 0442 Ibuprofen 600 MG TID PRN 01/23 0830 AC 01/23 PO 1039 Lidocaine 1 PAT DAILY 01/23 1000 AC 01/24 EXT 1257 Methadone HCl 40 MG DAILY 01/22 1000 AC 01/24 PO 0904 Nicotine 21 MG Q24 01/21 2045 AC 01/24 TOP 1257 Sodium Chloride 1,000 ML Q6H 01/23 2115 DC 01/24 IV 01/24 0914 0426 Tramadol HCl 50 MG Q6P PRN 01/24 0845 AC 01/24 PO 1416 Tramadol HCl 50 MG Q8P PRN 01/23 2230 DC 01/24 PO 0725 Tramadol HCl 50 MG Q6 01/23 1200 DC 01/23 PO 1711 Laboratory Tests 01/24/17 1000: CBC w Diff NO MAN DIFF REQ, RBC 4.21, MCV 91.0, MCH 30.3, RDW 13.0, MPV 6.2 L, Gran % 62.7, Lymphocytes % 28.4, Monocytes % 5.4, Eosinophils % 3.2, Basophils % 0.3, Absolute Granulocytes 7.5 H, Absolute Lymphocytes 3.4, Absolute Monocytes 0.6, Absolute Eosinophils 0.4, Absolute Basophils 0, PUBS MCHC 33.3 01/24/17 0742: Sodium Cancelled, Potassium Cancelled, Chloride Cancelled, Carbon Dioxide Cancelled, Anion Gap Cancelled, BUN Cancelled, Creatinine Cancelled, BUN/ Creatinine Ratio Cancelled 01/24/17 0720: Anion Gap 7, Estimated GFR > 60, BUN/Creatinine Ratio 13.3, Creatine Kinase 183 H Vital Signs Date Time Temp Pulse Resp B/P B/P Pulse O2 O2 Flow FiO2 Mean Ox Delivery Rate 01/24 1418 98.1 82 18 130/80 98 Room Air 01/24 0800 Room Air 01/24 0444 98.6 64 18 122/70 97 Room Air 01/24 0000 98.7 90 18 140/86 96 Room Air 01/23 2032 99.4 76 20 124/60 95 Room Air 01/23 1643 98.7 84 20 126/70 95 Room Air Intake & Output 01/24 1600 01/24 0800 01/24 0000 Intake Total 1350 450 Output Total 200 Balance -200 1350 450 Intake, IV 1000 150 Intake, Oral 350 300 Number 1 Bowel Movements Output, Urine 200
--- NOTE | 2017-01-24 15:32 | PN- Att Addend ---
Attending Addendum Attending Brief Note Patient seen and examined. I talked to the patient and patient's mother and the RN at length. Patient continues to complain of low back pain, difficulty bending and difficulty with ambulation. She says she could barely tolerate physical therapy. The MRI of the entire spine done with gadolinium shows the muscle edema is less and there is some artifact but the cord appears intact. In addition the MRI of the brain and all of the blood tests to date are normal and her CPK has come down quite considerably to the 500s range and I don't think we need to check it every day and can safely stop the fluids. That being said she continues to worry about her problems with ambulation and her hyperreflexia that the neurologist informed her about. I explained to her that the only next step to do now would be an LP. She wants to think about it and talk to the neurologist this evening about it and if still indicated will be done first thing in the morning with the CSF being sent for the studies recommended by the neurologist. In the meantime I've asked psych to see her again because I don't think the anxiety medications are controlling her anxiety and will continue the tramadol for pain.
--- NOTE | 2017-01-24 17:02 | PN- Neurology ---
Subjective Subjective: Feeling somewhat better as far as pain goes. Reports that has had back pain and mid back pain that began 3 weeks earlier. This had progressed to the point where she went to the walk in and was given steroids but these were stopped 2 days later here. She also notes that she later also got the gabapentin for pain. Repeat MRIs with contrast ruled out myelitis. However, on further review there is a disc herniation at T6-7 that in my opinion causes cord flattening and a cord signal. Also, her CPK has dropped to 500 today and there was reduced inflammation in the paravertebral muscles on MRI. Her white count is also trending down. Rest of blood work is negative to this point. Review of Systems: No change. Objective Vital Signs and I&Os Vital Signs Date Time Temp Pulse Resp B/P B/P Pulse O2 O2 Flow FiO2 Mean Ox Delivery Rate 01/24 1418 98.1 82 18 130/80 98 Room Air 01/24 0800 Room Air 01/24 0444 98.6 64 18 122/70 97 Room Air 01/24 0000 98.7 90 18 140/86 96 Room Air 01/23 2032 99.4 76 20 124/60 95 Room Air Intake & Output 01/24 1600 01/24 0800 01/24 0000 01/23 1600 01/23 0800 01/23 0000 Intake Total 950 1350 450 680 200 400 Output Total 200 700 Balance 750 1350 450 -20 200 400 Intake, IV 150 1000 150 0 Intake, Oral 800 350 300 680 200 400 Number 1 0 Bowel Movements Output, Urine 200 700 Physical Exam: Alert but somnolent. Oriented. Face symmetric, EOMI, DEAN. Arm strength intact and but legs still weak proximally and hyperreflexive. Current Medications: Current Medications Sig/Vernon Start time Last Medication Dose Route Stop Time Status Admin Acetaminophen 650 MG .STK-MED ONE 01/24 0443 DC PO 01/24 0444 Acetaminophen 650 MG Q4-6 PRN PRN 01/22 1645 AC 01/24 PO 0443 Benzocaine 1 ELLIOTT BID PRN 01/24 0845 AC 01/24 TOP 1306 Calcium Carbonate 500 MG Q6 01/24 1615 AC 01/24 PO 1625 Clindamycin 150 MG 4 TIMES/DAY 01/21 2200 AC 01/24 PO 1416 Dexamethasone 4 MG Q8 01/24 1611 AC Dextrose/Water 50 ML IV Diazepam 10 MG ONCE ONE 01/24 1030 DC 01/24 PO 01/24 1031 1028 Diclofenac Sodium 1 ELLIOTT 4 TIMES/DAY PRN 01/22 1815 AC 01/23 TOP 0538 Fluoxetine HCl 60 MG DAILY 01/24 1000 AC 01/24 PO 0904 Heparin Sodium 5,000 UNIT Q8 01/21 2200 AC 01/24 (Porcine) SC 1417 Hydroxyzine HCl 75 MG TID 01/23 1600 AC 01/24 PO 1625 Ibuprofen 800 MG .STK-MED ONE 01/24 0441 DC PO 01/24 0442 Ibuprofen 600 MG TID PRN 01/23 0830 AC 01/23 PO 1039 Lidocaine 1 PAT DAILY 01/23 1000 AC 01/24 EXT 1257 Methadone HCl 40 MG DAILY 01/22 1000 AC 01/24 PO 0904 Nicotine 21 MG Q24 01/21 2045 AC 01/24 TOP 1257 Sodium Chloride 1,000 ML Q6H 01/23 2115 DC 01/24 IV 01/24 0914 0426 Tramadol HCl 50 MG Q6P PRN 01/24 0845 AC 01/24 PO 1416 Tramadol HCl 50 MG Q8P PRN 01/23 2230 DC 01/24 PO 0725 Tramadol HCl 50 MG Q6 01/23 1200 DC 01/23 PO 1711 Results Last 24 Hours of Lab Results: Laboratory Tests 01/24 01/24 01/24 1000 0742 0720 Chemistry Sodium (137 - 145 mmol/L) Cancelled 139 Potassium (3.5 - 5.1 mmol/L) Cancelled 4.3 Chloride (98 - 107 mmol/L) Cancelled 102 Carbon Dioxide (22 - 30 mmol/L) Cancelled 30 Anion Gap (5 - 16) Cancelled 7 BUN (7 - 17 mg/dL) Cancelled 8 Creatinine (0.5 - 1.0 mg/dL) Cancelled 0.6 Estimated GFR (>60 ml/min) > 60 BUN/Creatinine Ratio (7 - 25 %) Cancelled 13.3 Creatine Kinase (30 - 135 U/L) 183 H Hematology CBC w Diff NO MAN DIFF REQ WBC (4.8 - 10.8 /CUMM) 11.9 H RBC (4.20 - 5.40 /CUMM) 4.21 Hgb (12.0 - 16.0 G/DL) 12.7 Hct (37 - 47 %) 38.3 MCV (81.0 - 99.0 FL) 91.0 MCH (27.0 - 31.0 PG) 30.3 RDW (11.5 - 14.5 %) 13.0 Plt Count (130 - 400 /CUMM) 345 MPV (7.4 - 10.4 FL) 6.2 L Gran % (42.2 - 75.2 %) 62.7 Lymphocytes % (20.5 - 51.1 %) 28.4 Monocytes % (1.7 - 9.3 %) 5.4 Eosinophils % (0 - 5 %) 3.2 Basophils % (0.0 - 2.0 %) 0.3 Absolute Granulocytes (1.4 - 6.5 /CUMM) 7.5 H Absolute Lymphocytes (1.2 - 3.4 /CUMM) 3.4 Absolute Monocytes (0.10 - 0.60 /CUMM) 0.6 Absolute Eosinophils (0.0 - 0.7 /CUMM) 0.4 Absolute Basophils (0.0 - 0.2 /CUMM) 0 PUBS MCHC (33.0 - 37.0 G/DL) 33.3 Recent Imaging Studies: Thoracic spine MRI - reviewed directly - there is a T6-7 disc both on axial and saggital imaging that causes flattening of the cord and signal change on the T2 saggital. Assessment/Plan Assessment: 26 year old woman with a presentation consistent with progressive myelopathy over 3 weeks due to a thoracic disc herniation that was confounded and complicated by side effects to gabapentin. Plan: 1. Start Decadron 4mg q8h to reduce inflammation and edema around cord. 2. If this improves her situation and her leg strength would call neurosurgery to evaluate tomrrow, asking them to read this current note before drawing conclusions on this confusing case. 3. Would hold off LP without any further evidence of myelitis, meningitis, fever and a declining white count. YC
--- NOTE | 2017-01-24 19:56 | NUR ---
SPOKE TO MD TODAY ABOUT PT'S TREMORS AND PAIN LEVEL. NEUROLOGY CONSULTED AND STARTED PT ON DECADRON. CONTINUE TO MONITOR
--- NOTE | 2017-01-24 21:10 | NUR ---
Late Entry: Met with patient and her mom on Saturday, 01/22. Orquidea confirmed at that time that she is a newly enrolled client at [facility] methadone clinic in [place]. She was agreeable to pursue additional substance abuse treatment at the methadone clinic. Have noted patients observation status was changed to a full admit with neurology following.
[2017-01-24 22:53] VITALS: BP 146/98
--- NOTE | 2017-01-24 23:09 | NUR ---
PT MOTHER REPORTS ABX FROM HOME WERE STARTED 01/16/17, #30, EVERY 6 HRS.
[2017-01-25 06:30] VITALS: BP 122/60
--- NOTE | 2017-01-25 07:16 | PN- Housestaff ---
SHAY MCCABE 01/25/17 0716: Subjective Follow-up For: rhabdomyolysis history of polysubstance abuse progressive weakness Subjective: Seen and examined patient, mother at bedside. persisent neck pain and still feels too weak to walk. Today she is complaining of numbness and tingling radiating from right side neck down to her arm. She also continues to experience transiently intermittent diploplia. Reports three episoded urinary incontinence overnight when sleeping. She is still able to control her bladder during the day. Denies worsening neck pain, shortness of breath, chest pain, palpitations, dysuria, abdominal pain. Review of Systems Constitutional: Denies: chills, diaphoresis, fever, malaise, weakness, unexplained weight loss. Cardiovascular: Denies: chest pain, edema, orthopena, palpitations, peripheral edema, syncope. Respiratory: Denies: no symptoms, cough, hemoptysis, orthopnea, short of breath, sputum production, stridor, wheezing. Objective Last 24 Hrs of Vital Signs/I&O Vital Signs Date Time Temp Pulse Resp B/P B/P Pulse O2 O2 Flow FiO2 Mean Ox Delivery Rate 01/25 0909 64 124/78 01/25 0630 98.0 59 18 122/60 96 Room Air 01/25 0000 96 Room Air 01/24 2253 98.2 62 18 146/98 96 Room Air 01/24 2148 146/92 01/24 1418 98.1 82 18 130/80 98 Room Air Intake & Output 01/25 1600 01/25 0800 01/25 0000 Intake Total 280 580 Output Total 400 501 Balance -400 280 79 Intake, IV 80 100 Intake, Oral 200 480 Number 0 Bowel Movements Output, Stool 1 Output, Urine 400 500 Physical Exam General Appearance: Alert, Oriented X3, Cooperative, No Acute Distress Cardiovascular: Regular Rate, Normal S1, Normal S2 Lungs: Clear to Auscultation, Normal Air Movement Extremities: No Edema Current Medications: Current Medications Sig/Vernon Start time Last Medication Dose Route Stop Time Status Admin Acetaminophen 650 MG Q4-6 PRN PRN 01/22 1645 AC 01/25 PO 1221 Benzocaine 1 ELLIOTT BID PRN 01/24 0845 AC 01/24 TOP 1306 Calcium Carbonate 500 MG Q6 01/24 1615 AC 01/25 PO 1017 Clindamycin 150 MG 4 TIMES/DAY 01/21 2200 AC 01/25 PO 0909 Clonidine 0.1 MG ONCE ONE 01/25 1100 DC PO 01/25 1101 Clonidine 0.1 MG BID 01/24 2200 AC 01/25 PO 0909 Dexamethasone 4 MG Q8 01/24 1611 AC 01/25 Dextrose/Water 50 ML IV 0638 Diclofenac Sodium 1 ELLIOTT 4 TIMES/DAY PRN 01/22 1815 AC 01/23 TOP 0538 Fluoxetine HCl 60 MG DAILY 01/24 1000 AC 01/25 PO 0909 Heparin Sodium 5,000 UNIT Q8 01/21 2200 AC 01/25 (Porcine) SC 0640 Hydroxyzine HCl 75 MG TID 01/23 1600 AC 01/25 PO 0909 Ibuprofen 600 MG TID PRN 01/23 0830 AC 01/25 PO 0802 Lidocaine 1 PAT DAILY 01/23 1000 AC 01/25 EXT 0910 Methadone HCl 40 MG DAILY 01/22 1000 AC 01/25 PO 0909 Nicotine 21 MG Q24 01/21 2045 AC 01/25 TOP 0909 Tramadol HCl 50 MG Q6P PRN 01/24 0845 AC 01/25 PO 1016 Last 24 Hrs of Lab/Kg Results Last 24 Hrs of Labs/Mics: Laboratory Tests 01/25/17 0610: PT 12.9 H, INR 1.23 H Assessment/Plan Assessment: 26-year-old lady with a PMH significant for opiate dependence on methadone, depression and anxiety current admission with back pain of 10 days duration. On admission was found to have leukocytosis at 14 and elevated CPK at 2515. A series of MRI studies were done was concerning for abnormal edema paraspinal muscles. Day 4 of admission: remains afebrile, vitals stable, continuing weakness and inablility to walk even with assistance. PT is recomending STR. MRI with contrast significant only for small disc bulge at T3-T4 and small disc protrusion at T6-T7 Problem list: Rhabdomyolysis (? drug induced)-resolving Transaminitis History of opiate dependence currently on methadone weakness tooth infection Plan: per neurology on trial of Decadron 4mg q8h Neurology and Psychiatry consulted, appreciate recommendations one extra dose of clonidine given today. Continue methadone, fluoxetine dose increased to 60 mg , atarax decreased to 75 mg, diazepam 5 mg BID Will discontinue clindamycin as she 8 days of treatment. regular diet DVT ppx sc heparin full code Problem List: 1. Depression 2. Rhabdomyolysis 3. Polysubstance (excluding opioids) dependence 4. Anxiety 5. Cord compression Pain Ratin Pain Location: neck Pain Goal: Pain 4 or less Pain Plan: current regimen Tomorrow's Labs & Rationales: none requied JUAN ALBERTO DUPONTGUERLINE 01/25/17 1339: Attending MD Review Statement Attending Statement Attending MD Statement: examined this patient, discuss w/resident/PA/BALLOON PILOT, agreed w/resident/PA/BALLOON PILOT, discussed with family, reviewed EMR data (avail), discussed with nursing, discussed with case mgmt Attending Assessment/Plan: Pt is very anxious and crying today. She had a huge fight with her mother after which her mother left. Patient accuses her mother off being a drug addict as well. The pt was started on Decadron after the neurologist reviewed the images of the MRI yesterday and felt that the T6-T7 area might be abutting the spinal cord. She doesn't feel like she is any better. Psych is also helping us with addition of clonidine for anxiety. We have her on tramadol with ibuprofen with the Lidoderm patch and Voltaren gel for pain. Given that we now have her on the steroids with the ibuprofen I'll add a PPI for prophylaxis. PT is recommending acute rehabilitation however the fact that she is on methadone might make it difficult for us to get a bed.
[2017-01-25 08:25] LABS: PT 12.9 SEC (9.4-12.5)
--- NOTE | 2017-01-25 08:27 | PN- Psychiatry ---
See Addendum Assessment/Plan Impression: Identifying Info: 26-year-old single female presents to [facility] emergency department on 01/21/2017 for back pain. Transferred to medical floor for observation subsequently diagnosed with rhabdomyolysis with unknown etiology. SUBJECTIVE Patient states "I feel a bit better." Reporting decreased anxiety. She tolday requests to see a char filter tank tender. Reports that around times of waking and falling alseep she is talking to people, specifically her uncle, who is not there. Verbilizing understand that if these continue become distress or interfere with fucntioning there may be a need for additonal psychotropic medication. Pt's mother, Kely, remains at bedside who reports the pt appeared to be having ahllucination of a cat and responding to it overnight. Reports her other daughter has hallucinated on gabapentin in the past. OBJECTIVE Mental Status Exam Presentation/Appearance: Cooperative with evaluation. Hospital garb. Sitting in bed eating breakfast. Orientation: x4 Sensorium: Awake and alert Eye contact: Appropriate Affect: Somewhat blunted Mood: Euthymic Depression: 0/10 Anxiety: 3/10 Thought Content: - Endorses intermittent AVH during times of waking or falling asleep, non- distressing - Denies SI/HI, PI. States and also believes they will not kill themselves. - Denies Hopeless/Helpless Thoughts Thought Process: Linear Speech: Normal tone and rate Judgment: Fair Insight: Fair Cognition: Memory: Grossly intact Attention/Concentration: Grossly intact Brief ROS Gait: Unsteady Sleep: 5 hours last night Appetite: Adequate ASSESSMENT 26-year-old single female presents with rhabdomyolysis and symptoms of gabapentin intoxication now with clearer mentation. Improved anxiety and mood sx. Reporting hallucinations that appear to be hypnogogic in nature, could potentially be residual sx from gabapentin intoxication and delirium due to polypharmacy. If they worsen the pt may require antipsychotic medication. With pt starting decadron today will need to monitor closely for changes in psychiatric symptoms. Differential diagnosis Unspecified anxiety disorder Opiate use disorder, severe, in early remission on MMT Cannabis use disorder Unspecified depressive disorder Gabapentin intoxication, resolved Suggestion: 1. Continue psychotropics as currently ordered. 2. Please start clonidine 0.1 mg BID off label use for anxiety to decrease level of arousal and improve sleep. Hold for systolic BP below 90, diastolic below 60. 3. Appreciate social work referral for disposition planning. Thank you for including psychiatry in this case, we will continue to follow. Subjective Subjective: as above Objective Last 24 Hrs of Vital Signs/I&O Current Medications Sig/Vernon Start time Last Medication Dose Route Stop Time Status Admin Acetaminophen 650 MG Q4-6 PRN PRN 01/22 1645 AC 01/24 PO 0443 Benzocaine 1 ELLIOTT BID PRN 01/24 0845 AC 01/24 TOP 1306 Calcium Carbonate 500 MG Q6 01/24 1615 AC 01/25 PO 0639 Clindamycin 150 MG 4 TIMES/DAY 01/21 2200 AC 01/24 PO 2148 Clonidine 0.1 MG BID 01/24 2200 AC 01/24 PO 2148 Dexamethasone 4 MG Q8 01/24 1611 AC 01/25 Dextrose/Water 50 ML IV 0638 Diazepam 10 MG ONCE ONE 01/24 1030 DC 01/24 PO 01/24 1031 1028 Diclofenac Sodium 1 ELLIOTT 4 TIMES/DAY PRN 01/22 1815 AC 01/23 TOP 0538 Fluoxetine HCl 60 MG DAILY 01/24 1000 AC 01/24 PO 0904 Heparin Sodium 5,000 UNIT Q8 01/21 2200 AC 01/25 (Porcine) SC 0640 Hydroxyzine HCl 75 MG TID 01/23 1600 AC 01/24 PO 2147 Ibuprofen 600 MG TID PRN 01/23 0830 AC 01/25 PO 0802 Lidocaine 1 PAT DAILY 01/23 1000 AC 01/24 EXT 1257 Methadone HCl 40 MG DAILY 01/22 1000 AC 01/24 PO 0904 Nicotine 21 MG Q24 01/21 2045 AC 01/24 TOP 1257 Sodium Chloride 1,000 ML Q6H 01/23 2115 DC 01/24 IV 01/24 0914 0426 Tramadol HCl 50 MG Q6P PRN 01/24 0845 AC 01/25 PO 0355 Tramadol HCl 50 MG Q8P PRN 01/23 2230 DC 01/24 PO 0725 Laboratory Tests 01/25/17 0610: PT Pending, INR Pending 01/24/17 1000: CBC w Diff NO MAN DIFF REQ, RBC 4.21, MCV 91.0, MCH 30.3, RDW 13.0, MPV 6.2 L, Gran % 62.7, Lymphocytes % 28.4, Monocytes % 5.4, Eosinophils % 3.2, Basophils % 0.3, Absolute Granulocytes 7.5 H, Absolute Lymphocytes 3.4, Absolute Monocytes 0.6, Absolute Eosinophils 0.4, Absolute Basophils 0, PUBS MCHC 33.3 Vital Signs Date Time Temp Pulse Resp B/P B/P Pulse O2 O2 Flow FiO2 Mean Ox Delivery Rate 01/25 0630 98.0 59 18 122/60 96 Room Air 01/24 2253 98.2 62 18 146/98 96 Room Air 01/24 2148 146/92 01/24 1418 98.1 82 18 130/80 98 Room Air Intake & Output 01/25 1600 01/25 0800 01/25 0000 Intake Total 280 580 Output Total 501 Balance 280 79 Intake, IV 80 100 Intake, Oral 200 480 Number 0 Bowel Movements Output, Stool 1 Output, Urine 500
[2017-01-25 13:58] VITALS: BP 122/60
--- NOTE | 2017-01-25 14:30 | NUR ---
1400- VERBAL ALTERCATION BETWEEN PT, FATHER AND MOTHER. ORDER 10 CALLED. PT STATES MOTHER NEEDS TO LEAVE. MOTHER EXCORTED OUT BY SECURITY. PER PT, SHE DOES NOT WANT MOTHER TO VISIT WHILE SHE IS IN THE HOSPITAL. SECURITY AWARE, SUPERVISOR TELEPHONE INFORMATION AWARE.
--- NOTE | 2017-01-25 15:15 | PN- Neurology ---
Subjective Subjective: ALERT FEELING BETTER STRENGHT IMPROVING PAIN RESOLVING NOT WALKING ON OWN NO SENSORY LOSS BABINSKI FLEXOR cpk FALLING iMP: RHABDMYELITIS RESOLVING PLAN: PT CALL IF FURHTER NEURO NEED QUIN WARREN Objective Vital Signs and I&Os Vital Signs Date Time Temp Pulse Resp B/P B/P Pulse O2 O2 Flow FiO2 Mean Ox Delivery Rate 01/25 1358 98.1 66 20 122/60 96 Room Air 01/25 1344 65 126/80 01/25 0909 64 124/78 01/25 0630 98.0 59 18 122/60 96 Room Air 01/25 0000 96 Room Air 01/24 2253 98.2 62 18 146/98 96 Room Air 01/24 2148 146/92 Intake & Output 01/25 1600 01/25 0800 01/25 0000 01/24 1600 01/24 0800 01/24 0000 Intake Total 850 280 173 135 7480 450 Output Total 1000 501 200 Balance -150 280 79 750 1350 450 Intake, IV 130 80 261 676 7366 150 Intake, Oral 720 200 480 800 350 300 Number 0 1 Bowel Movements Output, Stool 1 Output, Urine 1000 500 200 Current Medications: Current Medications Sig/Vernon Start time Last Medication Dose Route Stop Time Status Admin Acetaminophen 650 MG Q4-6 PRN PRN 01/22 1645 AC 01/25 PO 1221 Benzocaine 1 ELLIOTT BID PRN 01/24 0845 AC 01/24 TOP 1306 Calcium Carbonate 500 MG Q6 01/24 1615 AC 01/25 PO 1017 Clindamycin 150 MG 4 TIMES/DAY 01/21 2200 DC 01/25 PO 1328 Clonidine 0.1 MG ONCE ONE 01/25 1100 DC 01/25 PO 01/25 1101 1344 Clonidine 0.1 MG BID 01/24 2200 AC 01/25 PO 0909 Dexamethasone 4 MG Q8 01/24 1611 AC 01/25 Dextrose/Water 50 ML IV 1328 Diclofenac Sodium 1 ELLIOTT 4 TIMES/DAY PRN 01/22 1815 AC 01/23 TOP 0538 Fluoxetine HCl 60 MG DAILY 01/24 1000 AC 01/25 PO 0909 Heparin Sodium 5,000 UNIT Q8 01/21 2200 AC 01/25 (Porcine) SC 1328 Hydroxyzine HCl 75 MG TID 01/23 1600 AC 01/25 PO 0909 Ibuprofen 600 MG TID PRN 01/23 0830 AC 01/25 PO 0802 Lidocaine 1 PAT DAILY 01/23 1000 AC 01/25 EXT 0910 Methadone HCl 40 MG DAILY 01/22 1000 AC 01/25 PO 0909 Nicotine 21 MG Q24 01/21 2045 AC 01/25 TOP 0909 Omeprazole 20 MG DAILY AC 01/25 1338 AC PO Tramadol HCl 50 MG Q6P PRN 01/24 0845 AC 01/25 PO 1016 Assessment/Plan Assessment: SEE ABOVE Plan: PT
[2017-01-25 18:10] VITALS: BP 130/80
--- NOTE | 2017-01-25 22:00 | NUR ---
PT C/O INCREASED ABD DISCOMFORT, NO GAS/BM. HYPOACTIVE BOWEL SOUNDS. MD REESE NOTIFIED.
[2017-01-25 22:38] VITALS: BP 120/78
[2017-01-26 07:07] VITALS: BP 130/78
--- NOTE | 2017-01-26 07:53 | PN- Housestaff ---
SHAY MCCABE 01/26/17 0753: Subjective Follow-up For: rhabdomyolysis history of polysubstance abuse progressive weakness Anxiety Subjective: Seen and examined patient. States that she did not sleep well last night. Continues to feel tired and feels that she is not able to walk. Complains of abdominal pain bloating and constipation. Denies fever, chills, shortness of breath, chest pain Review of Systems Constitutional: Denies: chills, diaphoresis, fever, malaise, weakness, unexplained weight loss. Cardiovascular: Denies: chest pain, edema, orthopena, palpitations, peripheral edema, syncope. Respiratory: Denies: cough, hemoptysis, orthopnea, short of breath, sputum production, stridor, wheezing. Objective Last 24 Hrs of Vital Signs/I&O Vital Signs Date Time Temp Pulse Resp B/P B/P Pulse O2 O2 Flow FiO2 Mean Ox Delivery Rate 01/26 0955 78 122/84 01/26 0707 98.8 60 20 130/78 97 Room Air 01/25 2353 93 Room Air 01/25 2238 97.4 62 20 120/78 83 Room Air 01/25 2149 62 120/78 01/25 1810 98.8 90 24 130/80 95 Room Air 01/25 1358 98.1 66 20 122/60 96 Room Air 01/25 1344 65 126/80 Intake & Output 01/26 1600 01/26 0800 01/26 0000 Intake Total 560 320 Output Total 400 400 Balance 160 -80 Intake, IV 80 80 Intake, Oral 480 240 Output, Urine 400 400 Physical Exam General Appearance: Alert, Oriented X3, Cooperative, No Acute Distress Cardiovascular: Regular Rate, Normal S1, Normal S2 Lungs: Clear to Auscultation, Normal Air Movement Abdomen: Normal Bowel Sounds, Soft, No Tenderness Neurological: Normal Speech, Strength at 5/5 X4 Ext, Normal Tone, Sensation Intact, Cranial Nerves 3-12 NL Extremities: No Edema Current Medications: Current Medications Sig/Vernon Start time Last Medication Dose Route Stop Time Status Admin Acetaminophen 650 MG .STK-MED ONE 01/26 0151 DC PO 01/26 0152 Acetaminophen 650 MG .STK-MED ONE 01/25 1222 DC PO 01/25 1223 Acetaminophen 650 MG Q4-6 PRN PRN 01/22 1645 AC 01/26 PO 0514 Artificial Tears 2 GTT Q4P PRN 01/26 0600 AC OPH Benzocaine 1 ELLIOTT BID PRN 01/24 0845 AC 01/24 TOP 1306 Calcium Carbonate 500 MG Q6 01/24 1615 AC 01/26 PO 0514 Clindamycin 150 MG 4 TIMES/DAY 01/21 2200 DC 01/25 PO 1328 Clonidine 0.1 MG ONCE ONE 01/25 1100 DC 01/25 PO 01/25 1101 1344 Clonidine 0.1 MG BID 01/24 2200 AC 01/26 PO 0955 Dexamethasone 4 MG Q12H 01/26 1800 AC Dextrose/Water 50 ML IV Dexamethasone 4 MG Q8 01/24 1611 DC 01/26 Dextrose/Water 50 ML IV 0513 Diclofenac Sodium 1 ELLIOTT 4 TIMES/DAY PRN 01/22 1815 AC 01/26 TOP 0200 Fluoxetine HCl 60 MG DAILY 01/24 1000 AC 01/26 PO 0953 Heparin Sodium 5,000 UNIT Q8 01/21 2200 AC 01/26 (Porcine) SC 0514 Hydroxyzine HCl 75 MG TID 01/23 1600 AC 01/26 PO 0514 Ibuprofen 600 MG TID PRN 01/23 0830 AC 01/26 PO 0409 Lidocaine 1 PAT DAILY 01/23 1000 AC 01/26 EXT 0952 Melatonin 5 MG AT BEDTIME 01/26 2200 AC PO Methadone HCl 40 MG DAILY 01/22 1000 AC 01/26 PO 0611 Nicotine 21 MG Q24 01/21 2045 AC 01/26 TOP 0952 Omeprazole 20 MG DAILY AC 01/25 1338 AC 01/26 PO 0514 Polyethylene Glycol 17 GM DAILY 01/26 1000 AC PO Senna/Docusate Sodium 2 TAB DAILY PRN 01/26 0915 AC PO Tramadol HCl 50 MG Q6P PRN 01/24 0845 AC 01/26 PO 0322 Assessment/Plan Assessment: 26-year-old lady with a PMH significant for opiate dependence on methadone, depression and anxiety current admission with back pain of 10 days duration. On admission was found to have leukocytosis at 14 and elevated CPK at 2515. A series of MRI studies were done was concerning for abnormal edema paraspinal muscles. Day 5 of admission: remains afebrile, vitals stable. Patient would like her mother not to visit anymore as she feels that she is toxic to her recovery. She is motivated to go back to intensive outpatient therapy for her anxiety and substance abuse Problem list: Rhabdomyolysis (? drug induced)-resolving Transaminitis History of opiate dependence currently on methadone weakness tooth infection Plan: on Decadron 4mg q8h, will start tapering Decadron as it has not shown any benefit in terms of her symptoms. We'll start to taper Neurology and Psychiatry consulted, appreciate recommendations Continue methadone, fluoxetine dose increased to 60 mg , atarax decreased to 75 mg, diazepam 5 mg BID Will give trial of melatonin to see if that helps her sleep Ordered some bowel regiment as the alternative she's taking along with the other meds can give her worsening constipation. regular diet DVT ppx sc heparin full code Problem List: 1. Rhabdomyolysis 2. Depression 3. Anxiety 4. Polysubstance (excluding opioids) dependence Pain Ratin Pain Location: Neck Pain Goal: Pain 4 or less Pain Plan: Current regimen Tomorrow's Labs & Rationales: Follow-up CBC and BP and CPK GUERLINE AVENDANO MD 01/26/17 0934: Attending MD Review Statement Attending Statement Attending MD Statement: examined this patient, discuss w/resident/PA/STEEL HANGER, agreed w/resident/PA/STEEL HANGER, discussed with family, reviewed EMR data (avail), discussed with nursing, reviewed images Attending Assessment/Plan: Patient is slightly better spirits today. She overall she feels that she does better when her mom was not with all the time. She is requesting to limit her mom's visitation. She is a 26-year-old with a history of opiate addiction in the past and a tough social situation with her parents also being attics . She is on methadone treatment. She also has a history of severe anxiety and psych is helping us with the anxiety and right now she is on Atarax 75mg, 3 times a day with an increased dose of Prozac from 40-60 mg a day and on clonidine 0.1 twice a day. She came in with what appeared to be sedation and polypharmacy and over the hospital course evolved to difficulty with ambulation. She's had 2 MRIs since admission with an MRI of the brain and per the last neuro note from a few days ago we have given her Decadron 4mg IV every 8 for a suspected, very mild if any, cord compression. She doesn't appear to have much resolution with the Decadron. I'm not convinced this is cord compression to begin with. I'll start tapering off the Decadron now and make it for every 12hr. She is actively working with physical therapy and might need acute rehabilitation. Her rhabdo that was present on admission is resolving nicely. She finished a course of clindamycin for a tooth infection. And will follow closely.
--- NOTE | 2017-01-26 10:23 | NUR ---
10:15- PT DOES NOT WANT HER MOTHER TO VISIT HER WHILE IN THE HOSPITAL. PT GIVEN THE CHOICE OF "OPTING OUT" AND HAVING HER ROOM MOVED. PT STATES SHE DOES NOT WANT TO OPT OUT. HER FATHER HAS MADE IT CLEAR TO HER MOTHER THAT SHE IS NOT TO VISIT AND THAT SECURITY WILL BE CALLED IF SHE DOES VISIT. PT SATISFIED THAT IF MOTHER COMES, SECURITY WILL BE CALLED AND MOTHER WILL BE EXCORTED OUT. CHARGE NURSE AWARE OF ABOVE, MESSAGE LEFT WITH KRANTHI IN REGISTRATION REGARDING ABOVE.
--- NOTE | 2017-01-26 12:02 | NUR ---
1140- PT WITH SEVERE TREMORS TO BLE, SHAKING IN BED. FATHER PRESENT AND REQUESTING MD TO SEE PT. PT STATES SHE IS ALSO HAVING ANXIETY AND WANTS MEDICATION. DR. MCCABE NOTIFIED OF ABOVE. ADDITIONAL DOSE OF CLONIDINE TO BE ORDERED. 1150- PT STARTED TO YELL AND SHAKE UNCONTROLLABLY. DR. RAYA DOTSON ON UNIT AND CAME TO BEDSIDE TO ASSESS. SYMPTOMS STOP AND START ABRUPTLY. DR. DOTSON TO ORDER BACLOFEN. DR. DOTSON TO CONSULT WITH PSYCH TO SEE IF THERE ARE ADDITIONAL RECOMMENDATIONS. 1205- PT TALKING AND LAUGHING WITH FATHER. WATCHING TV. TREMORS NO LONGER VISABLE.
[2017-01-26 14:03] VITALS: BP 130/70
[2017-01-26 22:05] VITALS: BP 120/70
--- NOTE | 2017-01-27 00:57 | NUR ---
PT C/O MUSCLE SPASM, NOTIFIED . BACLOFEN 5mg GIVEN NOW. WILL CONTINUE TO MONITOR THIS SHIFT.
--- NOTE | 2017-01-27 01:50 | NUR ---
WENT TO REEVALUATE PT LEG SPASM AND PT SLEEPING. WILL CONTINUE TO MONITOR THIS SHIFT.
--- NOTE | 2017-01-27 05:03 | PN- Housestaff ---
AUBREY DUPONT,CHUCK 01/27/17 0502: Subjective Follow-up For: rhabdomyolysis history of polysubstance abuse progressive weakness Anxiety Subjective: Patient seen and examined. She is seen sitting upright in bed clutching her outstreched leg. She appears mildly uncomfortably. She states that he muscle spasms are still persistently bad, and has only gotten a few hours of sleep over the past few days secondary to this. She is requesting "something stronger", specifically asking for 'valium'. Otherwise she denies any chest pain, shortness of breath, nausea, vomiting. Overnight patient complained of persistent pain with muscle spasm and was given an additional dose of baclofen. Review of Systems Constitutional: Reports: see HPI. Objective Last 24 Hrs of Vital Signs/I&O Vital Signs Date Time Temp Pulse Resp B/P B/P Pulse O2 O2 Flow FiO2 Mean Ox Delivery Rate 01/27 0921 64 130/84 01/27 0736 97.4 64 20 130/84 98 Room Air 01/26 2205 98.1 72 20 120/70 96 01/26 1403 98.6 63 20 130/70 98 Room Air 01/26 1225 70 122/70 Intake & Output 01/27 1600 01/27 0800 01/27 0000 Intake Total 250 490 Output Total Balance 250 490 Intake, IV 10 10 Intake, Oral 240 480 Physical Exam General Appearance: Alert, Oriented X3, Cooperative, Mild Distress Other Physical Findings: General- well developed, well nourished young woman in no acute distress HEENT- NCAT, PERRL, EOMI, anicteric sclera CVS- S1, S2 w/o m/g/r Resp - CTA bilaterally Neuro- Awake and alert, right leg seen to be shaking rhythmically, babinski negative, DTR hyperflexive, speech intact, CN II - XII grossly intact Ext- normal pulses, no cyanosis/clubbing/edema Current Medications: Current Medications Sig/Vernon Start time Last Medication Dose Route Stop Time Status Admin Acetaminophen 650 MG .STK-MED ONE 01/27 331 DC PO 01/28 332 Acetaminophen 650 MG .STK-MED ONE 01/27 2052 DC PO 01/26 2053 Acetaminophen 650 MG Q4-6 PRN PRN 01/22 1645 AC 01/27 PO 033 Artificial Tears 2 GTT Q4P PRN 01/26 0600 AC 01/26 OPH 1707 Baclofen 10 MG BID PRN 01/27 1100 AC PO Baclofen 5 MG ONCE ONE 01/27 0100 DC 01/27 PO 01/27 0101 0054 Baclofen 5 MG BID PRN 01/26 1423 DC 01/27 PO 0337 Baclofen 5 MG TID 01/26 1151 DC 01/26 PO 1225 Benzocaine 1 ELLIOTT BID PRN 01/24 0845 AC 01/26 TOP 2056 Calcium Carbonate 500 MG Q6 01/24 1615 AC 01/27 PO 0634 Clonidine 0.1 MG ONCE ONE 01/26 1145 DC 01/26 PO 01/26 1146 1225 Clonidine 0.1 MG BID 01/24 2200 AC 01/27 PO 0921 Dexamethasone 4 MG Q12H 01/26 1800 AC 01/27 Dextrose/Water 50 ML IV 0634 Diclofenac Sodium 1 ELLIOTT 4 TIMES/DAY PRN 01/22 1815 AC 01/26 TOP 1200 Fluoxetine HCl 60 MG DAILY 01/24 1000 AC 01/27 PO 0920 Heparin Sodium 5,000 UNIT Q8 01/21 2200 AC 01/26 (Porcine) SC 1345 Hydroxyzine HCl 75 MG TID 01/23 1600 AC 01/27 PO 0634 Ibuprofen 600 MG TID PRN 01/23 0830 AC 01/27 PO 0923 Lidocaine 1 PAT DAILY PRN 01/27 0945 AC 01/27 EXT 1038 Lidocaine 1 PAT DAILY 01/23 1000 AC 01/27 EXT 0334 Melatonin 5 MG AT BEDTIME 01/26 2200 AC 01/26 PO 2228 Methadone HCl 40 MG DAILY 01/22 1000 AC 01/27 PO 0633 Nicotine 21 MG Q24 01/21 2045 AC 01/27 TOP 0921 Omeprazole 20 MG ONCE ONE 01/27 0415 DC 01/27 PO 01/27 0416 0416 Omeprazole 20 MG DAILY AC 01/25 1338 AC 01/27 PO 0633 Ondansetron HCl 4 MG ONCE ONE 01/27 0415 DC 01/27 IV 01/27 0416 0416 Polyethylene Glycol 17 GM DAILY 01/26 1000 AC 01/27 PO 0921 Senna/Docusate Sodium 2 TAB DAILY PRN 01/26 0915 AC PO Tramadol HCl 50 MG Q6P PRN 01/24 0845 AC 01/27 PO 0634 Last 24 Hrs of Lab/Kg Results Last 24 Hrs of Labs/Mics: Laboratory Tests 01/27/17 0630: Anion Gap 11, Estimated GFR > 60, BUN/Creatinine Ratio 22.9, Total Bilirubin 0.7 , Direct Bilirubin 0.4, AST 33, ALT 60 H, Alkaline Phosphatase 69, Total Protein 7.4, Albumin 4.1, CBC w Diff MAN DIFF ORDERED, RBC 4.60, MCV 91.7, MCH 30.5, RDW 13.3, MPV 6.3 L, Gran % 74.4, Lymphocytes % 17.8 L, Monocytes % 7.3, Eosinophils % 0.3, Basophils % 0.2, Absolute Granulocytes 22.3 H, Absolute Lymphocytes 5.4 H, Absolute Monocytes 2.2 H, Absolute Eosinophils 0.1, Absolute Basophils 0.1, Platelet Estimate VERIFIED BY SMEAR, Normocytic RBCs VERIFIED, Normochromic RBCs VERIFIED, PUBS MCHC 33.3 Assessment/Plan Assessment: 26-year-old lady with a PMH significant for opiate dependence on methadone, depression and anxiety current admission with back pain of 10 days duration. On admission was found to have leukocytosis at 14 and elevated CPK at 2515. A series of MRI studies were done was concerning for abnormal edema paraspinal muscles. Hospital Day 7 Patient continues to complain of persistent muscle spams/pain in his right lower extremity and neck/back that is not well controlled with an aggressive muscle relaxant regimen. She is requesting higher doses of baclofen or valium. She is continued on oral decadron which will continued to be tapered. WBC count elevated today most likely due to steroids as patient is afebrile and does not endorse and sign/symptoms/complaints suggestive of infection. Weakness / Rhabdomyolysis / Transaminitis Patient was in normal state of health until 10 days prior to admission where she underwent a root canal fora dental infection requiring oral antibiotics. She complained of severe back pain with radiation down her legs resulting in weakness and nocturnal urinary incontinence. 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 Complete spinal MRI on demonstrated improving edema and stable appearing T6/7 disc protrusion. -General Medicine -Dexamethasone 4mg IV Q12H, changed to 4mg PO Daily tomorrow -Baclofen 5mg PO BID PRN-muscle spasm -Neurology Consult following -Daily BEP,CPK to assess for renal insuffiency Opiate Abuse/Withdrawal/Dependence Patient with history of polysubstance abuse on methadone. -Monitor neurologic status -Hold gabapentin, diazepam, hydroxyzine until mentation improvies -Hold methadone if necessary for excessive sedation -Clonidine 0.1mg PO BID -Prozac 60mg PO Daily -Methadone 40mg PO Daily -Social work consult -Psychiatry consult Insomnia-Melatonin 5mg PO QHS Current Everyday Smoker-Nicoderm 21mg Patch Daily Pain Plan-Ibuprofen/Voltaren/Lidocaine/Acetaminophen Bowel Regimen-Senna/Miralax Diet-Regular Diet DVT PPx-subcutaneous heparin Code Status-FULL CODE Problem List: 1. Polysubstance (excluding opioids) dependence 2. Rhabdomyolysis 3. Cord compression Pain Ratin Pain Location: Right leg Back/Neck Pain Goal: Pain 7 or less Pain Plan: See assessment Tomorrow's Labs & Rationales: None GUERLINE AVENDANO MD 01/27/17 1045: Attending MD Review Statement Attending Statement Attending MD Statement: examined this patient, discuss w/resident/PA/FACTORY MAINTENANCE MANAGER, agreed w/resident/PA/FACTORY MAINTENANCE MANAGER, reviewed EMR data (avail), discussed with nursing, reviewed images Attending Assessment/Plan: The patient is complaining of spasms. She was started on baclofen 5 twice a day when necessary. She feels it's barely touching her and would like benzos. I talked to her at length about psychiatry strongly recommending that we don't go down the benzo route given her history of opiate addiction and addictive potential. She is a 26-year-old with a history of opiate addiction in the past and a tough social situation with her parents also being addicts . She is on methadone treatment. She also has a history of severe anxiety and psych is helping us with the anxiety and right now she is on Atarax 75mg, 3 times a day with an increased dose of Prozac from 40-60 mg a day and on clonidine 0.1 twice a day. She came in with what appeared to be sedation and polypharmacy and over the hospital course evolved to difficulty with ambulation. She's had 2 MRIs since admission with an MRI of the brain and per the last neuro note from a few days ago we have given her Decadron 4mg IV every 8, now tapered to 4mg IV every 12 for a suspected, very mild if any, cord compression. She doesn't appear to have much resolution with the Decadron. I'm not convinced this is cord compression to begin with. She is actively working with physical therapy and might need acute rehabilitation. Her rhabdo that was present on admission is resolving nicely. She finished a course of clindamycin for a tooth infection. And will follow closely. We will make the Decadron for by mouth tomorrow and continue to taper. Her white count is 30,000 but that I think is clearly from the high-dose Decadron and will trend that again tomorrow. Her transaminitis is resolving nicely. I think that was all secondary to the rhabdo. She has some form of a ?myelopathy with difficulty ambulation but she also has a lot of inconsistencies with nursing and PT to support psychiatric and psychogenic contributions to difficulty ambulation.
[2017-01-27 07:36] VITALS: BP 130/84
[2017-01-27 08:08] LABS: ABSOLUTE BASOPHIL COUNT 0.1 /CUMM (0.0-0.2); ABSOLUTE EOSINOPHIL COUNT 0.1 /CUMM (0.0-0.7); ABSOLUTE GRANULOCYTE CT 22.3 /CUMM (1.4-6.5); ABSOLUTE LYMPH COUNT 5.4 /CUMM (1.2-3.4); ABSOLUTE MONOCYTE COUNT 2.2 /CUMM (0.10-0.60); BASOPHIL % 0.2 % (0.0-2.0); EOSINOPHIL % 0.3 % (0-5); GRANULOCYTE % 74.4 % (42.2-75.2); HEMATOCRIT 42.2 % (37-47); MEAN CORPUSCULAR HGB 30.5 PG (27.0-31.0); MEAN CORPUSCULAR HGB CONC 33.3 G/DL (33.0-37.0); MEAN CORPUSCULAR VOLUME 91.7 FL (81.0-99.0); MEAN PLATELET VOLUME 6.3 FL (7.4-10.4); PLATELET COUNT 409 /CUMM (130-400); RBC DISTRIBUTION WIDTH 13.3 % (11.5-14.5)
[2017-01-27 14:42] VITALS: BP 130/80
[2017-01-27 21:51] VITALS: BP 122/80
--- NOTE | 2017-01-28 07:00 | PN- Housestaff ---
SHAY MCCABE 01/28/17 0659: Subjective Follow-up For: rhabdomyolysis history of polysubstance abuse progressive weakness Anxiety Subjective: Seen and examined patient. continues to complain of lower back pain. Continues to request more pain medication. Denies any chest pain, shortness of breath, nausea, vomiting. Review of Systems Constitutional: Denies: chills, diaphoresis, fever, malaise, weakness, unexplained weight loss. Cardiovascular: Denies: chest pain, edema, orthopena, palpitations, peripheral edema, syncope. Respiratory: Denies: cough, hemoptysis, orthopnea, short of breath, sputum production, stridor, wheezing. Objective Last 24 Hrs of Vital Signs/I&O Vital Signs Date Time Temp Pulse Resp B/P B/P Pulse O2 O2 Flow FiO2 Mean Ox Delivery Rate 01/28 0723 98.0 81 20 120/70 98 Room Air 01/27 2151 98.1 78 20 122/80 97 01/27 2150 75 122/80 01/27 1442 98.7 77 20 130/80 98 01/27 0921 64 130/84 Intake & Output 01/28 1600 01/28 0800 01/28 0000 Intake Total 730 530 Output Total Balance 730 530 Intake, IV 10 50 Intake, Oral 720 480 Number 0 0 Bowel Movements Physical Exam General Appearance: Alert, Oriented X3, Cooperative, No Acute Distress Cardiovascular: Regular Rate, Normal S1, Normal S2 Lungs: Clear to Auscultation, Normal Air Movement Neurological: Normal Speech, Strength at 5/5 X4 Ext, Normal Tone, Sensation Intact, Cranial Nerves 3-12 NL Extremities: No Edema, Normal Pulses Current Medications: Current Medications Sig/Vernon Start time Last Medication Dose Route Stop Time Status Admin Acetaminophen 650 MG .STK-MED ONE 01/27 1554 DC PO 01/27 1555 Acetaminophen 650 MG Q4-6 PRN PRN 01/22 1645 AC 01/28 PO 0318 Artificial Tears 2 GTT Q4P PRN 01/26 0600 AC 01/26 OPH 1707 Baclofen 10 MG BID PRN 01/27 1100 AC 01/28 PO 0641 Baclofen 5 MG BID PRN 01/26 1423 DC 01/27 PO 0337 Benzocaine 1 ELLIOTT BID PRN 01/24 0845 01/26 TOP 205 Calcium Carbonate 500 MG Q6 01/24 1615 AC 01/28 PO 0055 Clonidine 0.1 MG BID 01/24 2200 AC 01/27 PO 2150 Dexamethasone 4 MG ONCE ONE 01/28 1000 AC PO 01/28 1001 Dexamethasone 4 MG Q12H 01/26 1800 DC 01/27 Dextrose/Water 50 ML IV 01/28 0000 1845 Diclofenac Sodium 1 ELLIOTT 4 TIMES/DAY PRN 01/22 1815 AC 01/26 TOP 1200 Fluoxetine HCl 60 MG DAILY 01/24 1000 AC 01/27 PO 0920 Heparin Sodium 5,000 UNIT Q8 01/21 2200 AC 01/26 (Porcine) SC 1345 Hydroxyzine HCl 75 MG TID 01/23 1600 AC 01/27 PO 2150 Ibuprofen 600 MG TID PRN 01/23 0830 AC 01/28 PO 0056 Lidocaine 1 PAT DAILY PRN 01/27 0945 AC 01/27 EXT 1038 Lidocaine 1 PAT DAILY 01/23 1000 AC 01/27 EXT 0334 Melatonin 5 MG AT BEDTIME 01/26 2200 AC 01/27 PO 2149 Methadone HCl 40 MG DAILY 01/22 1000 AC 01/28 PO 0640 Nicotine 21 MG Q24 01/21 2045 AC 01/27 TOP 0921 Omeprazole 20 MG DAILY AC 01/25 1338 AC 01/28 PO 0640 Polyethylene Glycol 17 GM DAILY 01/26 1000 AC 01/27 PO 0921 Senna/Docusate Sodium 2 TAB DAILY PRN 01/26 0915 AC PO Tramadol HCl 50 MG Q6P PRN 01/24 0845 AC 01/28 PO 0810 Assessment/Plan Assessment: 26-year-old lady with a PMH significant for opiate dependence on methadone, depression and anxiety current admission with back pain of 10 days duration. On admission was found to have leukocytosis at 14 and elevated CPK at 2515. A series of MRI studies were done was concerning for abnormal edema paraspinal muscles. Hospital Day 8 Afebrile, vital signs stable Continues to complain of persistent muscle spams/ pain in her right lower extremity and back pain. 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 Complete spinal MRI on 01/24/17 demonstrated improving edema and stable appearing T6/7 disc protrusion. -continue General Medicine -on 4mg PO Daily today, called and spoke to the medical oncologist neurologist Dr. Saldana who said that they will be signing off at this time. Verified the tapering of Decadron. After today's dose of 4mg OD we can discontinue it safely -Baclofen 5mg PO BID PRN-muscle spasm -PT recomending home pt with rolling walker Opiate Abuse/Withdrawal/Dependence -Monitor neurologic status, continues to request pain medication -Hold methadone if necessary for excessive sedation -Clonidine 0.1mg PO BID increased to TID per janeth, Mirtazepine has been added per their recomendations -Prozac 60mg PO Daily -Methadone 40mg PO Daily -Social work consult -Psychiatry consult Insomnia-Melatonin 5mg PO QHS Current Everyday Smoker-Nicoderm 21mg Patch Daily Pain Plan-Ibuprofen/Voltaren/Lidocaine/Acetaminophen Bowel Regimen-Senna/Miralax Diet-Regular Diet DVT PPx-subcutaneous heparin Code Status-FULL CODE Problem List: 1. Rhabdomyolysis 2. Depression 3. Anxiety 4. Polysubstance (excluding opioids) dependence Pain Ratin Pain Location: right hip pain Pain Goal: Pain 4 or less Pain Plan: current regimen Tomorrow's Labs & Rationales: none required DELL ZELAYA MD 01/28/17 1245: Attending MD Review Statement Attending Statement Attending MD Statement: examined this patient, discuss w/resident/PA/GROUT MACHINE TENDER, agreed w/resident/PA/GROUT MACHINE TENDER, reviewed EMR data (avail), discussed with nursing, discussed with case mgmt, amended to note Attending Assessment/Plan: Patient was resting comfortably and did not appear to be in any acute distress. She continues to report weakness in her lower extremities. She reports that she has been ambulating with the use of walker. She denies any new symptoms today. She does admit to being unsteady and requires the aid of walker however she is very reluctant to be discharged to senior care facility for short-term rehabilitation. She would like to be discharged home. Recommendations: -Follow-up with the neurology service regarding duration of steroid therapy. -Follow-up with the physical therapy service regarding safe discharge planning. -Anticipate discharge tomorrow if no further recommendations for inpatient management by the neurology service. -Her leukocytosis is likely secondary to steroid therapy. Recommend follow-up as an outpatient to determine resolution once she is off steroid therapy. -Psychiatric input appreciated. We'll follow-up recommendations.
[2017-01-28 07:23] VITALS: BP 120/70
[2017-01-28] MEDS ORDERED: CLONIDINE HCL0.1 MG PO (08:59)
[2017-01-28] MEDS ORDERED: BACLOFEN10 M1 PO (08:59)
[2017-01-28] MEDS ORDERED: TRAMADOL HCL50 M1 PO (08:59)
--- NOTE | 2017-01-28 09:58 | PN- Psychiatry ---
Assessment/Plan Impression: Identifying Info: 26-year-old single female presents to [facility] emergency department on 01/21/2017 for back pain. Transferred to medical floor for observation subsequently diagnosed with rhabdomyolysis with unknown etiology. SUBJECTIVE Patient states "things are going pretty good." Reports her mother is no longer allowed to visit her and her father has been staying with her. Complains of continued anxiety and poor sleep. Dis cussed a varity of tx options with pt, she is agreeable to a trial of mirtazepine and incresed frequency of clonidine. OBJECTIVE Mental Status Exam Presentation/Appearance: Cooperative with evaluation. Hospital garb. Orientation: x4 Sensorium: Somnolent but easily aroused Eye contact: Appropriate Affect: Somewhat blunted Mood: Euthymic Depression: 0/10 Anxiety: endorses Thought Content: - Endorses intermittent AVH during times of waking or falling asleep, non- distressing - Denies SI/HI, PI. States and also believes they will not kill themselves. - Denies Hopeless/Helpless Thoughts Thought Process: Linear Speech: Normal tone and rate Judgment: Fair Insight: Fair Cognition: Memory: Grossly intact Attention/Concentration: Grossly intact Brief ROS Gait: Unsteady Sleep: 5 hours last night Appetite: Adequate ASSESSMENT 26-year-old single female presents with rhabdomyolysis and symptoms of gabapentin intoxication now with clear mentation. Improved anxiety and mood sx but continued poor sleep. Reporting hallucinations that appear to be hypnogogic in nature. If they worsen the pt may require antipsychotic medication. Differential diagnosis Unspecified anxiety disorder Opiate use disorder, severe, in early remission on MMT Cannabis use disorder Unspecified depressive disorder Gabapentin intoxication, resolved Suggestion: 1. Please start mirtazepine 7.5mg qhs. 2. Please increase clonidine frequency to 0.1 mg TID off label use for anxiety to decrease level of arousal and improve sleep. Hold for systolic BP below 90, diastolic below 60. 3. Please continue other psychotropics. 4. Appreciate social work referral for disposition planning. Thank you for including psychiatry in this case, we will continue to follow. Subjective Subjective: as above Objective Last 24 Hrs of Vital Signs/I&O Current Medications Sig/Vernon Start time Last Medication Dose Route Stop Time Status Admin Acetaminophen 650 MG .STK-MED ONE 01/27 1554 DC PO 01/27 1555 Acetaminophen 650 MG Q4-6 PRN PRN 01/22 1645 AC 01/28 PO 0318 Artificial Tears 2 GTT Q4P PRN 01/26 0600 AC 01/26 OPH 1707 Baclofen 10 MG BID PRN 01/27 1100 AC 01/28 PO 0641 Baclofen 5 MG BID PRN 01/26 1423 DC 01/27 PO 0337 Benzocaine 1 ELLIOTT BID PRN 01/24 0845 AC 01/26 TOP 2056 Calcium Carbonate 500 MG Q6 01/24 1615 AC 01/28 PO 0055 Clonidine 0.1 MG BID 01/24 2200 AC 01/27 PO 2150 Dexamethasone 4 MG ONCE ONE 01/28 1000 AC PO 01/28 1001 Dexamethasone 4 MG Q12H 01/26 1800 DC 01/27 Dextrose/Water 50 ML IV 01/28 0000 1845 Diclofenac Sodium 1 ELLIOTT 4 TIMES/DAY PRN 01/22 1815 AC 01/26 TOP 1200 Fluoxetine HCl 60 MG DAILY 01/24 1000 AC 01/27 PO 0920 Heparin Sodium 5,000 UNIT Q8 01/21 2200 AC 01/26 (Porcine) SC 1345 Hydroxyzine HCl 75 MG TID 01/23 1600 AC 01/27 PO 2150 Ibuprofen 600 MG TID PRN 01/23 0830 AC 01/28 PO 0056 Lidocaine 1 PAT DAILY PRN 01/27 0945 AC 01/27 EXT 1038 Lidocaine 1 PAT DAILY 01/23 1000 AC 01/27 EXT 0334 Melatonin 5 MG AT BEDTIME 01/26 2200 AC 01/27 PO 2149 Methadone HCl 40 MG DAILY 01/22 1000 AC 01/28 PO 0640 Nicotine 21 MG Q24 01/21 2045 AC 01/27 TOP 0921 Omeprazole 20 MG DAILY AC 01/25 1338 AC 01/28 PO 0640 Polyethylene Glycol 17 GM DAILY 01/26 1000 AC 01/27 PO 0921 Senna/Docusate Sodium 2 TAB DAILY PRN 01/26 0915 AC PO Tramadol HCl 50 MG Q6P PRN 01/24 0845 AC 01/28 PO 0810 Laboratory Tests 01/27/17 0630: Anion Gap 11, Estimated GFR > 60, BUN/Creatinine Ratio 22.9, Total Bilirubin 0.7 , Direct Bilirubin 0.4, AST 33, ALT 60 H, Alkaline Phosphatase 69, Total Protein 7.4, Albumin 4.1, CBC w Diff MAN DIFF ORDERED, RBC 4.60, MCV 91.7, MCH 30.5, RDW 13.3, MPV 6.3 L, Gran % 74.4, Lymphocytes % 17.8 L, Monocytes % 7.3, Eosinophils % 0.3, Basophils % 0.2, Absolute Granulocytes 22.3 H, Absolute Lymphocytes 5.4 H, Absolute Monocytes 2.2 H, Absolute Eosinophils 0.1, Absolute Basophils 0.1, Platelet Estimate VERIFIED BY SMEAR, Normocytic RBCs VERIFIED, Normochromic RBCs VERIFIED, PUBS MCHC 33.3 Vital Signs Date Time Temp Pulse Resp B/P B/P Pulse O2 O2 Flow FiO2 Mean Ox Delivery Rate 01/28 0723 98.0 81 20 120/70 98 Room Air 01/27 2151 98.1 78 20 122/80 97 01/27 2150 75 122/80 01/27 1442 98.7 77 20 130/80 98 Intake & Output 01/28 1600 01/28 0800 01/28 0000 Intake Total 730 530 Output Total Balance 730 530 Intake, IV 10 50 Intake, Oral 720 480 Number 0 0 Bowel Movements
[2017-01-28] MEDS ORDERED: HYDROXYZINE HCL25 M2 PO (11:51)
[2017-01-28 14:10] VITALS: BP 120/70
[2017-01-29 06:30] VITALS: BP 122/76
[2017-01-29] MEDS ORDERED: NICOTINE PATCH1 EAC3 TOP (07:03)
[2017-01-29] MEDS ORDERED: OMEPRAZOLE20 M2 PO (07:03)
[2017-01-29] MEDS ORDERED: CLONIDINE HCL0.1 MG PO (07:03)
[2017-01-29] MEDS ORDERED: REMERON15 M2 PO (07:03)
[2017-01-29] MEDS ORDERED: FLUOXETINE HCL20 M2 PO (07:06)
--- NOTE | 2017-01-29 09:20 | PN- Housestaff ---
SHAY MCCABE 01/29/17 0920: Subjective Follow-up For: rhabdomyolysis history of polysubstance abuse progressive weakness Anxiety Subjective: seen and examined patient, seems anxious to go home today. She walked with PT yesterday without any issues with the aide of a walker. Review of Systems Constitutional: Denies: chills, diaphoresis, fever, malaise, weakness, unexplained weight loss. Cardiovascular: Denies: chest pain, edema, orthopena, palpitations, peripheral edema, syncope. Respiratory: Denies: cough, hemoptysis, orthopnea, short of breath, sputum production, stridor, wheezing. Objective Last 24 Hrs of Vital Signs/I&O Vital Signs Date Time Temp Pulse Resp B/P B/P Pulse O2 O2 Flow FiO2 Mean Ox Delivery Rate 01/29 0630 98.6 95 18 122/76 98 Room Air 01/28 2128 84 126/86 01/28 1558 80 120/70 01/28 1410 97.9 80 20 120/70 99 Room Air Intake & Output 01/29 1600 01/29 0800 01/29 0000 Intake Total 200 200 Output Total Balance 200 200 Intake, Oral 200 200 Physical Exam General Appearance: Alert, Oriented X3, Cooperative, No Acute Distress Cardiovascular: Regular Rate, Normal S1, Normal S2 Lungs: Clear to Auscultation, Normal Air Movement Current Medications: Current Medications Sig/Vernon Start time Last Medication Dose Route Stop Time Status Admin Acetaminophen 650 MG .STK-MED ONE 01/29 0229 DC PO 01/29 0230 Acetaminophen 650 MG Q4-6 PRN PRN 01/22 1645 AC 01/29 PO 0228 Artificial Tears 2 GTT Q4P PRN 01/26 0600 AC 01/26 OPH 1707 Baclofen 10 MG BID PRN 01/27 1100 AC 01/29 PO 0856 Benzocaine 1 ELLIOTT BID PRN 01/24 0845 AC 01/26 TOP 2056 Calcium Carbonate 500 MG Q6 01/24 1615 AC 01/29 PO 0617 Clonidine 0.1 MG TID 01/28 1600 AC 01/29 PO 0855 Clonidine 0.1 MG BID 01/24 2200 DC 01/28 PO 1030 Diclofenac Sodium 1 ELLIOTT 4 TIMES/DAY PRN 01/22 1815 AC 01/26 TOP 1200 Fluoxetine HCl 60 MG DAILY 01/24 1000 AC 01/29 PO 0856 Heparin Sodium 5,000 UNIT Q8 01/21 2200 AC 01/26 (Porcine) SC 1345 Hydroxyzine HCl 75 MG TID 01/23 1600 AC 01/29 PO 0855 Ibuprofen 600 MG TID PRN 01/23 0830 AC 01/28 PO 2306 Lidocaine 1 PAT DAILY PRN 01/27 0945 AC 01/28 EXT 1029 Lidocaine 1 PAT DAILY 01/23 1000 AC 01/29 EXT 0855 Melatonin 5 MG AT BEDTIME 01/26 2200 AC 01/28 PO 2122 Methadone HCl 40 MG DAILY 01/22 1000 AC 01/29 PO 0854 Mirtazapine 7.5 MG AT BEDTIME 01/28 2200 AC 01/28 PO 2123 Nicotine 21 MG Q24 01/21 2045 AC 01/29 TOP 0854 Omeprazole 20 MG DAILY AC 01/25 1338 AC 01/29 PO 0617 Patient Medication 1 ED .STK-MED ONE 01/28 1358 DC Teaching ED 01/28 1359 Polyethylene Glycol 17 GM DAILY 01/26 1000 AC 01/28 PO 1030 Senna/Docusate Sodium 2 TAB DAILY PRN 01/26 0915 AC PO Tramadol HCl 50 MG Q6P PRN 01/24 0845 AC 01/29 PO 1023 Assessment/Plan Assessment: 26-year-old lady with a PMH significant for opiate dependence on methadone, depression and anxiety current admission with back pain of 10 days duration. On admission was found to have leukocytosis at 14 and elevated CPK at 2515. A series of MRI studies were done was concerning for abnormal edema paraspinal muscles. Hospital Day 9 Afebrile, vital signs stable. States she is anxious about going. We spoke to her CROZE MACHINE OPERATOR whom she has seen twice in the past gave her an update on her current situation. There is psych department [facility] and health services. If patient is agreeable we willl make an appointment for her vs someone at her [facility] methadone clinic in [place]. After speaking to her she wishes to continue her care at [facility] and she will continue to with her CROZE MACHINE OPERATOR. 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 Complete spinal MRI on 01/24/17 demonstrated improving edema and stable appearing T6/7 disc protrusion. -continue General Medicine -off decadrone -Baclofen 5mg PO BID PRN-muscle spasm -PT recomending home pt with rolling walker Opiate Abuse/Withdrawal/Dependence - continues to request pain medication -Hold methadone if necessary for excessive sedation -Clonidine 0.1mg PO BID increased to TID per janeth, Mirtazepine has been added per their recomendations -Prozac 60mg PO Daily -Methadone 40mg PO Daily -Social work consult -Psychiatry consult Insomnia-Melatonin 5mg PO QHS Current Everyday Smoker-Nicoderm 21mg Patch Daily Pain Plan-Ibuprofen/Voltaren/Lidocaine/Acetaminophen Bowel Regimen-Senna/Miralax Diet-Regular Diet DVT PPx-subcutaneous heparin Code Status-FULL CODE medically stable for discharge with [facility] today Problem List: 1. Rhabdomyolysis 2. Depression 3. Anxiety 4. Polysubstance (excluding opioids) dependence Pain Ratin Pain Location: na Pain Goal: Pain 4 or less Pain Plan: current regimen Tomorrow's Labs & Rationales: none required DELL ZELAYA MD 01/29/17 0957: Attending MD Review Statement Attending Statement Attending MD Statement: examined this patient, discuss w/resident/PA/CHART CHANGER, agreed w/resident/PA/CHART CHANGER, reviewed EMR data (avail), discussed with nursing, discussed with case mgmt, amended to note Attending Assessment/Plan: Patient resting comfortably in bed not in any acute distress. No events overnight reported by nursing staff. She remains afebrile and hemodynamically stable. She was seen by the physical therapist service yesterday and cleared for discharge home. Case was was discussed with the neurology service who recommends discontinuation of further therapy with Decadron. Shows anticipated yesterday for discharge this morning however this morning she stated that her uncle whom she plans to stay with was unavailable today and will probably be available tomorrow. Following discussion with the ed case manager she did state that she would reach out to others to make other arrangements for discharge today. Recommendations: -Patient is stable from a medical standpoint for discharge home today. -She has also been cleared from the physical therapy standpoint. -She has been provided with prescriptions for analgesic therapy. -The neurology service has recommended discontinuation of Decadron and will follow-up with the patient has an outpatient. -Labs will be repeated as an outpatient to monitor improvement of her leukocytosis, which is likely secondary to steroid therapy
--- NOTE | 2017-01-29 09:37 | PN- Psychiatry ---
Assessment/Plan Impression: Identifying Info: 26-year-old single female presents to [facility] emergency department on 01/21/2017 for back pain. Transferred to medical floor for observation subsequently diagnosed with rhabdomyolysis with unknown etiology. SUBJECTIVE Patient states reports high anxiety r/t the possibility of being discharged home alone but is somewhat unclear why. There is some mention of fear of maintaining sobriety if she goes back to uncle's house and he is not home. Patient reports she will contact her MMT program to inform them she will ikely be discharged soon to clarify what they need for documentation. OBJECTIVE Mental Status Exam Presentation/Appearance: Cooperative with evaluation. Hospital garb. Orientation: x4 Sensorium: Alert Eye contact: Appropriate Affect: Somewhat blunted Mood: Anxious Depression: Denies Anxiety: Endorses high Thought Content: - Denies SI/HI, PI. States and also believes they will not kill themselves. - Denies Hopeless/Helpless Thoughts - ? AVH when falling alseep Thought Process: Linear Speech: Normal tone and rate Judgment: Fair Insight: Fair Cognition: Memory: Grossly intact Attention/Concentration: Grossly intact Brief ROS Gait: Reports unsteady, cleared by pt Sleep: Interupted hourly Appetite: Adequate ASSESSMENT 26-year-old single female presents with rhabdomyolysis and symptoms of gabapentin intoxication now with clear mentation. Continued anxiety and continued poor sleep. Reporting hallucinations that appear to be hypnogogic in nature. Would benefit from increase in non-narcotic anxiety and sleep medication. Differential diagnosis Unspecified anxiety disorder Opiate use disorder, severe, in early remission on MMT Cannabis use disorder Unspecified depressive disorder Gabapentin intoxication, resolved Suggestion: 1. Please consider increase of atarax to 100mg TID. 2. Please increase mirtazepine to 15mg qhs. 3. Please continue other psychotropics. 4. Appreciate social work referral for disposition planning. Thank you for including psychiatry in this case, we will continue to follow. Subjective Subjective: as above Objective Last 24 Hrs of Vital Signs/I&O Current Medications Sig/Vernon Start time Last Medication Dose Route Stop Time Status Admin Acetaminophen 650 MG Q4-6 PRN PRN 01/22 1645 AC 01/29 PO 0228 Artificial Tears 2 GTT Q4P PRN 01/26 0600 AC 01/26 OPH 1707 Baclofen 10 MG BID PRN 01/27 1100 AC 01/29 PO 0856 Benzocaine 1 ELLIOTT BID PRN 01/24 0845 AC 01/26 TOP 2056 Calcium Carbonate 500 MG Q6 01/24 1615 AC 01/29 PO 0617 Clonidine 0.1 MG TID 01/28 1600 AC 01/29 PO 0855 Clonidine 0.1 MG BID 01/24 2200 DC 05 PO 1030 Dexamethasone 4 MG ONCE ONE 01/28 1000 DC 01/28 PO 01/28 1001 1029 Diclofenac Sodium 1 ELLIOTT 4 TIMES/DAY PRN 01/22 1815 AC 01/26 TOP 1200 Fluoxetine HCl 60 MG DAILY 01/24 1000 AC 01/29 PO 0856 Heparin Sodium 5,000 UNIT Q8 01/21 2200 AC 01/26 (Porcine) SC 1345 Hydroxyzine HCl 75 MG TID 01/23 1600 AC 01/29 PO 0855 Ibuprofen 600 MG TID PRN 01/23 0830 AC 01/28 PO 2306 Lidocaine 1 PAT DAILY PRN 01/27 0945 AC 01/28 EXT 1029 Lidocaine 1 PAT DAILY 01/23 1000 AC 01/29 EXT 0855 Melatonin 5 MG AT BEDTIME 01/26 2200 AC 01/28 PO 2122 Methadone HCl 40 MG DAILY 01/22 1000 AC 01/29 PO 0854 Mirtazapine 7.5 MG AT BEDTIME 01/28 2200 AC 01/28 PO 2123 Nicotine 21 MG Q24 01/21 2045 AC 01/29 TOP 0854 Omeprazole 20 MG DAILY AC 01/25 1338 AC 01/29 PO 0617 Patient Medication 1 ED .STK-MED ONE 01/28 1358 DC Teaching ED 01/28 1359 Polyethylene Glycol 17 GM DAILY 01/26 1000 AC 01/28 PO 1030 Senna/Docusate Sodium 2 TAB DAILY PRN 01/26 0915 AC PO Tramadol HCl 50 MG Q6P PRN 01/24 0845 AC 01/29 PO 0433 Vital Signs Date Time Temp Pulse Resp B/P B/P Pulse O2 O2 Flow FiO2 Mean Ox Delivery Rate 01/29 630 98.6 95 18 122/76 98 Room Air 01/288 84 126/86 / 1558 80 120/70 01/28 1410 97.9 80 20 120/70 99 Room Air 01/28 1030 81 120/70 Intake & Output 01/29 1600 01/29 0800 05 0000 Intake Total 200 200 Output Total Balance 200 200 Intake, Oral 200 200
--- NOTE | 2017-01-29 10:04 | NUR ---
PHYSICAL THERAPY: PATIENT WAS RECIEVED SEATED EDGE OF BED, REQUESTING RN. Pt STATES THAT "SOMETHING JUST DOES NOT FEEL RIGHT." Pt REFUSING TO AMBULATE OR TRIAL STAIRS THIS P.T. AT THIS TIME STATING "I DO NOT EVEN CARE ABOUT THE STAIRS. I WILL GO HOME TODAY BUT I JUST NEED SOME TIME." WAS MADE AWARE; ATTEMTPED TO SPEAK WITH Pt, WHO CONTINUED TO REFUSE. CYTOGENETIC TECHNICIAN AWARE THAT PATIENT AGREEABLE TO D/C HOME W/O STAIR TRAIL. WILL F/U APPROPRAITE AND ABLE.
--- NOTE | 2017-01-29 13:17 | Discharge Summary ---
Visit Information Visit Dates Admission Date: 01/23/17 Discharge Date: 01/29/17 Hospital Course Course Attending Physician: DELL ZELAYA M.D Primary Care Physician: SARAH Jiménez Hospital Course: 26-year-old woman with medical history significant for anxiety and depression presented with a week duration of progressive upper and lower back pain which radiated to her right posterior thigh. Reported no injury or trauma or heavy lifting, bladder or bowel incontinence, no vision changes, head aches, head strikes a loss of consciousness. One month prior to admission she left AMA from residential treatment at [facility], where she was treated by Dr. Nguyen who started her on gabapentin 400 mg 4 times a day. MRI of the cervical, thoracic, lumbar spine showed no acute finding. However there was suggestion of abnormal edema in the paraspinal muscles throughout much of the cervical and lumbar spine. Pertinent labs- WBC 14,600, BEP is benign, AST 116, ALT 133, alkaline phosphatase 56, CK 2515. U tox positive for methadone, benzodiazepines, cannabis Admitted to the General Medicine floor and the following issues were addressed: Weakness / Rhabdomyolysis Her Rhabdomyolysis etiology was unclear and could have been secondary to Gabapentin or Methadone. Her CPK trended down with IV hydration. She continued to report lower extremity weakness on day 3 of admission along with inability to control her bladder at night. Complete spinal MRI on 01/24/17 demonstrated improving paraspinal muscle and stable appearing T6/7 disc protrusion. Neurology was consulted and it was decided to give a trial IV Decadron. After two days of IV steriods no noticiable improvement in her symptoms were notes and the Decadron was tapered off. MRI head without licha revealed not abnormality Neurology felt that her symptoms were not neurological and they signed off. Her WBC trended up to 30. She was advised to f/up cbc one week after discharge. Baclofen 5mg PO BID PRN was added for muscle spasm. She worked with PT daily and improved steadily until they recomended home pt with rolling walker. Polypharmacy/sedation On admission and day 1 on admission she was noted to be lethargic. Her Gabapentin, diazepam, and hydroxyzine were held until her mentation improved. Her Clonidine, Prozac and hydroxyzine was restarted at a lower dose. Mirtazepine was added for insomnia. Her Methadone dose was confirmed from her Methadone clinic, at the [facility] in [facility] and continued. Psychiatry was consulted and follow her throught her course. Her Gabapentin was discontinued during hospitalization and upon discharge. Pain Plan-Ibuprofen/Voltaren/Lidocaine/Acetaminophen Bowel Regimen-Senna/Miralax Diet-Regular Diet DVT PPx-subcutaneous heparin Code Status-FULL CODE She sees SARAH Jiménez Complications: none Allergies: Coded Allergies: Penicillins (ANAPHALAXIS 01/21/17) Significant Procedures: SERVICE DATE: 01/21/17 EXAM TYPE: MRI - MRI-CERVICAL SPINE; MRI-LUMBAR SPINE; MRI-THORACIC SPINE FINDINGS: Cervical spine: The marrow signal is homogeneous. No endplate erosive changes are evident. There is no marrow edema. The discs are fairly well-hydrated. There are mild posterior annular bulges at C3-C4, C5-C6, and C6-C7. No disc protrusions are seen. There is no central canal stenosis or foraminal narrowing. No epidural soft tissue abnormality is visible. Cord signal is normal. There is no syrinx. The imaged portions of the brain parenchyma demonstrate no acute abnormality. There is edema throughout the posterior paraspinal muscles from the C2 level extending into the upper thoracic levels. No soft tissue fluid collection is seen. The vertebral artery flow voids are maintained. Thoracic spine: The marrow signal is homogeneous. The discs are fairly well-hydrated. There is mild to moderate disc space narrowing with endplate Schmorl's node formation at T7-T8 level and a very mild annular bulge. At the T3-T4 level, there is a minimal disc bulge posteriorly. At the T6-T7 level, there is a very small central disc protrusion which abuts the ventral cord. There is no central canal stenosis or foraminal narrowing. No epidural fluid collection is seen. No syrinx is identified. Edema is visible in the posterior paraspinal soft tissues extending to the T3 level. Lumbar spine: The discs are well-hydrated. There are no compression fractures or subluxations. Mild fatty marrow endplate change is noted inferiorly at the L2 level. The central canal and neural foramina are widely patent. The distal cord, conus tip, and cauda equina nerve roots are normal. No epidural fluid collection is seen. There are no disc protrusions. There are edematous change is present in the posterior paraspinal muscles bilaterally spanning from the lower thoracic to the lumbar levels and to the sacrum inferiorly. No discrete fluid collection is seen. IMPRESSION: No epidural fluid collection. Mild spondylitic changes in the midthoracic spine. Small disc protrusion at T6-T7 abutting the ventral cord. No cord signal abnormality or syrinx. Minimal annular bulges in the cervical spine which is otherwise normal. No lumbar disc pathology. No imaging findings of discitis/osteomyelitis. Abnormal edema paraspinal muscles posteriorly throughout much of the cervical spine and lumbar spine with patchy areas of edema also present in the posterior paraspinal musculature in the upper and lower thoracic spine of indeterminate etiology. Imaging findings can be seen in the setting of rhabdomyolysis and clinical correlation is suggested. SERVICE DATE: 01/23/17 EXAM TYPE: MRI - MRI-HEAD W/O LICHA FINDINGS: Several of the series are motion degraded. Repeats were attempted. No acute abnormality. Given substantial motion on the majority of the series, the signal within the brain parenchyma appears grossly normal. Callosal volume is maintained. No focal reduced diffusion is seen to suggest acute or subacute cerebral ischemia. No intracranial mass, intracerebral edema, intra-axial blood products, midline shift, or extra-axial collection is visualized. The ventricles and sulcal spaces appear normal. Normal arterial and venous vascular flow voids are present. The paranasal sinuses, nasal cavity, nasopharynx, and mastoid air cells are clear. The orbits are unremarkable. The craniocervical junction and supersellar region appear unremarkable. Marrow signal is preserved. No evidence of upper cervical adenopathy. IMPRESSION: Motion degraded examination. No acute intercranial abnormality. No convincing signal abnormality within the brain. SERVICE DATE: 01/24/17 EXAM TYPE: MRI - MRI-CERVICAL W & W/O LICHA; MRI-LUMBAR SPINE W & W/O LICHA; MRI- THORACIC W & W/O LICHA FINDINGS: Decreasing edema within the paraspinal muscles posteriorly throughout the cervical spine and lumbar spine that remains indeterminate and may be secondary to resolving rhabdomyolysis or muscular strain injury. MR appearance of the cervical spine remains stable. There is no bone marrow edema. There are no acute fractures. The craniocervical junction is normal. No pathologic intrathecal enhancement. No pathologic intraosseous enhancement. Cerebellar tonsillar position is normal. Assessment for cord signal abnormality is nondiagnostic given the degree of artifact. The cervical arterial flow voids are maintained. Small annular disc bulges at the C3-C4, C5-C6, and C6-C7 levels remain stable. There is no severe central canal stenosis and there is no severe foraminal stenosis within the cervical spine. Thoracic alignment is normal. Vertebral body heights are maintained. There is moderate disc volume loss at the T7-T8 level that is stable. There is a stable appearing small central disc protrusion at the T6-T7 level that abuts the ventral cord. Possible mild increased signal within the ventral cord at this level, limitedly assessed given the degree of artifact. The central canal remains patent. Small disc bulge at T3-T4 and small disc protrusion at T6-T7 remain stable. No pathologic intrathecal nor intraosseous enhancement within the thoracic spine to There is no severe central canal stenosis and there is no severe foraminal stenosis within the thoracic spine. There is no bone marrow edema within the lumbar spine. No acute fractures. Vertebral body heights are maintained. Disc volumes are preserved. No pathologic intrathecal nor intraosseous enhancement within the lumbar spine. The conus terminates at the L1 level. Mild fatty marrow endplate changes anteriorly at L2 is stable. There are no disc herniations. No central canal stenosis and no foraminal stenosis. Extrarenal pelvis on the right side. IMPRESSION: - Decreasing edema within the paraspinal muscles posteriorly throughout the cervical spine and lumbar spine that remains indeterminate and may be secondary to resolving rhabdomyolysis or muscular strain injury. There is no MRI evidence of spinal infection. - There is a stable appearing small central disc protrusion at the T6-T7 level that abuts the ventral cord. Possible mild increased signal within the ventral cord at this level, limitedly assessed given the degree of artifact. The central canal remains patent. Assessment for additional cord signal abnormality is very limited given the degree of artifact on this study. Disposition Summary Disposition Principal Diagnosis: Rhabdomyolsis Additional Diagnosis: weakness transamintis polypharmacy Discharge Disposition: home health services Discharge Instructions General Discharge Information Code Status: Full Code Patient's Diet: regular diet Patient's Activity: as tolerated Follow-Up Instructions/Appts: follow up at your Methadone day after discharge ensure you talk to your Methadone clinic about setting up IOP follow up with your [facility] Isa Jiménez Please recheck CBC within one week Medications at Discharge Discharge Medications: Stop taking the following medications: Clindamycin HCl (Clindamycin HCl) 150 MG CAPSULE ORAL 4 TIMES A DAY Qty = 30 Gabapentin (Gabapentin) 400 MG CAPSULE ORAL 4 TIMES A DAY Qty = 120 Hydroxyzine Pamoate (Hydroxyzine Pamoate) 50 MG CAPSULE ORAL THREE TIMES DAILY Qty = 180 Fluoxetine HCl (Fluoxetine HCl) 40 MG CAPSULE ORAL Every Morning Qty = 30 Continue taking these medications: Methadone HCl (Methadone HCl) 10 MG/ML ORAL.CONC 40 Milligram ORAL DAILY Comments: Last Taken:01/29/17 Time:9 AM Norethindrone AC-Eth Estradiol (Loestrin 21 1-20 Tablet) 1 MG-20 MCG TABLET 1 Tablet ORAL DAILY Comments: NOT GIVEN IN HOSPITAL Start taking the following new medications: Fluoxetine HCl (Fluoxetine HCl) 20 MG CAPSULE 3 Tablet ORAL DAILY as needed for ANXIETY Qty = 30 No Refills Comments: Last Taken: 01/29/17 Time:9 AM Lidocaine (Lidoderm) 5 % ADH..PATCH 1 Patch ON SKIN DAILY as needed for Pain Qty = 7 No Refills Comments: Last Taken:01/28/17 Time:10:30 AM Diclofenac Sodium (Voltaren) 1 % GEL..GRAM. 1 Application On the skin 4 TIMES A DAY as needed for PAIN SCALE 1-3 (MILD) Qty = 1 No Refills Comments: Last Taken:01/26/17 Time:12 PM Baclofen (Baclofen) 10 MG TABLET 10 Milligram ORAL TWICE DAILY as needed for SPASMS Qty = 15 No Refills Comments: Last Taken:01/29/17 Time:6:30 PM Tramadol HCl (Tramadol HCl) 50 MG TABLET 50 Milligram ORAL EVERY SIX HOURS NEEDED as needed for chronic pain Qty = 15 No Refills Comments: Last Taken:01/29/17 Time:4:40 PM Nicotine (Nicotine Patch) 21 MG/24 HOUR PATCH.TD24 21 Milligram On the skin EVERY 24 HOURS Qty = 30 No Refills Comments: Last Taken:01/29/17 Time:9 AM Clonidine HCl (Clonidine HCl) 0.1 MG TABLET 0.1 Milligram ORAL THREE TIMES DAILY Days = 15 No Refills Comments: Last Taken:01/29/17 Time:4:40 PM Mirtazapine (Remeron) 15 MG TABLET 7.5 Milligram ORAL AT BEDTIME as needed for SLEEP Days = 15 No Refills Comments: Last Taken:01/28/17 Time:10 PM Omeprazole (Omeprazole) 20 MG CAPSULE.DR 20 Milligram ORAL DAILY BEFORE BREAKFAST as needed for GERD Days = 30 No Refills Comments: Last Taken:01/29/17 Time:6:20 AM Hydroxyzine HCl (Hydroxyzine HCl) 25 MG TABLET 3 Tablet ORAL THREE TIMES DAILY Days = 30 No Refills Comments: Last Taken:01/29/17 Time:4:40 PM Copies To: ELIOT DUPONT,SHAY Attending MD Review Statement Documenting Attending: DELL ZELAYA M.D Other Findings: Patient is medically stable to be discharged.
[2017-01-29 16:37] VITALS: BP 118/62
== END 2017-01-29 19:17 | disposition home health service (06) | DRG 351 ==
LOC: ERH 10:57 → ERHI 18:39 → 2NA 18:39 → ENRESERV 20:14 → ERHI 21:52 → 2NA 21:52 → ERHI 01-23 14:28 → 2NA 01-23 14:28 → ENPENDDIS 01-29 09:42 → 2NA 01-29 19:17
PROVIDERS: Emergency Medicine; Internal Medicine; Internal Medicine Hematology & Oncology; ADMIT Internal Medicine
DX: M62.82 Rhabdomyolysis (principal); F11.20 Opioid dependence, uncomplicated; F17.200 Nicotine dependence, unspecified, uncomplicated; R74.0 Nonspecific elevation of levels of transaminase and lactic acid dehydrogenase [LDH]; F41.8 Other specified anxiety disorders
CPT/HCPCS: 2NASP; 70551; 72141; 72142; 72146; 72147; 72148; 72149; 86618; 36415; 72156; 72157; 72158; 80307; 81001; 81025; 82436; 87040; 87086; 87389; 93005; 93010; 96372; 97116-GO; 97161-GP; 97530-GO; 99233; A9579; G0480; J1100; J1644; J1885; J2405; J3360